=== PATIENT | male | born 1955 | race Caucasian/White ===

== ENCOUNTER 2021-06-27 09:16 | Inpatient (IN) | payer OTHER ==
[~2021-06-27] VITALS: Ht 175.3 cm; Wt 96.2 kg
[2021-06-27 09:41] VITALS: BP 155/91
[2021-06-27 09:44] LABS: URINE BILIRUBIN NEGATIVE (Negative); URINE BLOOD 3+ (Negative); URINE CLARITY CLOUDY; URINE COLOR RED; URINE GLUCOSE-RANDOM* TRACE (Negative); URINE KETONES TRACE (Negative); URINE PROTEIN (DIPSTICK) 2+ (Negative)
[2021-06-27 09:48] LABS: URINE LEUKOCYTES-REFLEX 1+ (Negative); URINE NITRITE-REFLEX POSITIVE (Negative)
[2021-06-27 10:05] LABS: ABSOLUTE NEUTROPHILS 7.5 thou/uL (1.4-8.2); BASOPHILS 0.4 % (0.0-2.0); EOSINOPHILS 1.6 % (0.0-3.0); HEMATOCRIT 39.9 % (42.0-52.0); HEMOGLOBIN 13.9 gm/dL (14.0-18.0); LYMPHOCYTES 10.7 % (24.0-44.0); MCH 33.5 pg (26.0-34.0); MCHC 34.8 g/dL (28.0-37.0); MCV 96.2 fL (80.0-100.0); MONOCYTES 8.8 % (1.0-8.0); PLATELET COUNT 205 thou/uL (150-400); POLYS 78.5 % (36.0-66.0); RBC 4.15 mil/uL (4.50-6.00); RDW 12.6 % (10.5-14.5); WBC 9.6 thou/uL (4.0-11.0)
[2021-06-27] MEDS ORDERED: COZAAR 25 MG TA25 M1 PO (10:08)
[2021-06-27] MEDS ORDERED: NORVASC5 MG PO (10:08)
[2021-06-27 10:09] LABS: BACTERIA-REFLEX None Seen /HPF (None Seen); CASTS None Seen /LPF (None Seen); CRYSTALS None Seen /LPF (None Seen); SQUAMOUS None Seen /LPF (0-3); URINE RBC >20 Many /HPF (NONE SEEN); URINE WBC-REFLEX 6-15 Few /HPF (0-5)
[2021-06-27] MEDS ORDERED: PROAIR HFA8.5 GM INH (10:10)
[2021-06-27] MEDS ORDERED: TRAMADOL 50 MG50 MG PO (10:10)
[2021-06-27] MEDS ORDERED: ALBUTEROL2.5 MG/0.1 INH (10:10)
[2021-06-27 10:15] LABS: ANION GAP 10 mmol/L (7-16); BUN 49 mg/dL (7-18); CALCIUM 9.1 mg/dL (8.5-10.1); CHLORIDE 102 mmol/L (98-107); CO2 22 mmol/L (21-32); CREATININE 6.1 mg/dL (0.7-1.3); GLUCOSE 113 mg/dL (74-106); POTASSIUM 5.7 mmol/L (3.5-5.1); SODIUM 134 mmol/L (136-145)
[2021-06-27 10:26] LABS: ALBUMIN 3.8 g/dL (3.4-5.0); MAGNESIUM 1.8 mg/dL (1.8-2.4); SGOT 16 U/L (15-37); SGPT 17 U/L (30-65); TOTAL BILIRUBIN 0.8 mg/dL (0.2-1.0); TOTAL PROTEIN 7.5 g/dL (6.4-8.2); TROPONIN-I <0.06 ng/mL (<0.06)
[2021-06-27] MEDS ORDERED: ALBUTEROL0.63 MG/3 INH (12:14)
--- NOTE | 2021-06-27 13:16 | NUR ---
TOOK OVER CARE FROM SADIE ALVARADO AT THIS TIME
--- NOTE | 2021-06-27 13:36 | EKG ---
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
[2021-06-27 14:21] LABS: FOLIC ACID 14.6 ng/mL (8.6-58.9)
[2021-06-27 16:29] VITALS: BP 167/94
--- NOTE | 2021-06-27 16:29 | NUR ---
REPORT GIVEN TO SADIE NAJERA AT THIS TIME. PT AND PT SPOUSE UPDATED ON CARE PLAN, VERBALIZED UNDERSTANDING DENIES FURTHER QUESTIONS AT THIS TIME
[2021-06-27 17:00] VITALS: BP 181/96
[2021-06-27 19:28] VITALS: BP 149/98
--- NOTE | 2021-06-27 19:32 | NUR ---
Received pt from the ED, pt is alert x 3 but not able to sign consents. at the bedside. Admission orers executed, FC in place draining blood tinged urine. per last time pt had a drink was a week ago since he was now feeling well. On CIWA protocol, scored 7. SOB noted placed on 2L of O2 sat is at 95%. Smoke 1 pack daily. POC followed, endorsed to the night nurse.
[2021-06-27] MEDS ORDERED: TRELEGY ELLIPT1 EAC1 (19:43)
[2021-06-28] VITALS (7 sets, daily range): BP systolic 150–193; BP diastolic 88–109
--- NOTE | 2021-06-28 02:12 | NUR ---
PT IS A/O X3 AND IS FORGETFUL. REMAINS ON 2 LITERS O2 NC. CAN BE IMPULSIVE TO GETTING UP AND TAKING OFF OXYGEN. VSS. AFEBRILE. HR ELEVATED IN THE 120'S. ST ON THE MONITOR. MURPHY IN PLACE DRAINING YELLOW AND BLOOD TINGED URINE. PT DENIES C/O PAIN OR DISCOMFORT BUT IS NOTED TO CONSISTENTLY LEAN TO LEFT SIDE OF THE BED WHEN LYING. SCORES RANGE FROM 7 TO 10 ON THE CIWA SCORE. C/O FEELING ANXIOUS AND HAS SLIGHT TREMORS. IS NOTED SOA WITH EXERTION. MEDICATIONS GIVEN PER MAR. CURRENTLY NPO AWAITING PROCEDURE IN THE AM. FALL PRECAUTIONS IN PLACE, CALL LIGHT IS WITHIN REACH. WILL CONTINUE TO MONITOR.
[2021-06-28 03:06] LABS: MCHC 34.1 g/dL (28.0-37.0); WBC 11.3 thou/uL (4.0-11.0)
[2021-06-28 03:08] LABS: ABSOLUTE NEUTROPHILS 10.9 thou/uL (1.4-8.2); BASOPHILS 0.2 % (0.0-2.0); HEMATOCRIT 41.2 % (42.0-52.0); HEMOGLOBIN 14.1 gm/dL (14.0-18.0); LYMPHOCYTES 3.1 % (24.0-44.0); MCV 96.7 fL (80.0-100.0); MONOCYTES 0.9 % (1.0-8.0); PLATELET COUNT 189 thou/uL (150-400); POLYS 95.8 % (36.0-66.0); RBC 4.26 mil/uL (4.50-6.00); RDW 13.2 % (10.5-14.5)
[2021-06-28 03:17] LABS: CALCIUM 8.6 mg/dL (8.5-10.1); CREATININE 5.7 mg/dL (0.7-1.3); MAGNESIUM 1.8 mg/dL (1.8-2.4)
[2021-06-28 03:29] LABS: POTASSIUM 6.4 mmol/L (3.5-5.1)
--- NOTE | 2021-06-28 16:20 | NUR ---
PT HAS RESTED QUIETLY IN BED THROUGH THE DAY. HE IS CONFUSED MOST OF THE TIME. ATE VERY LITTLE THROUGH THE DAY. URINE IS STILL BLOODY.
[2021-06-29 03:13] VITALS: BP 193/110
[2021-06-29 03:36] LABS: HEMATOCRIT 38.9 % (42.0-52.0); MCH 32.4 pg (26.0-34.0); MCHC 33.4 g/dL (28.0-37.0); MCV 97.1 fL (80.0-100.0); RDW 13.1 % (10.5-14.5); WBC 17.8 thou/uL (4.0-11.0)
--- NOTE | 2021-06-29 04:01 | NUR ---
assumed pt care at 1900, pt is awake, alert to self with confusion, st on tele, bp elevated this shift, treated with hydralizinex2 and lopressorx1, denies pain, ciwa 8-10, ativan po wood heel finisher per mar, calm and resting in bed, gonzáles catheter still draining bloody urine, irrigatedx2, willl continue to monitor, progressing slowly towards poc
[2021-06-29 05:55] VITALS: BP 172/86
[2021-06-29 06:08] LABS: ALBUMIN 3.5 g/dL (3.4-5.0); CALCIUM 8.9 mg/dL (8.5-10.1); CREATININE 5.3 mg/dL (0.7-1.3); PHOSPHORUS 6.4 mg/dL (2.5-4.9)
[2021-06-29 06:16] LABS: POTASSIUM 5.7 mmol/L (3.5-5.1)
[2021-06-29 07:38] VITALS: BP 188/82
[2021-06-29 11:21] VITALS: BP 146/86
[2021-06-29 15:05] VITALS: BP 106/54
--- NOTE | 2021-06-29 18:07 | NUR ---
PT MUCH ALERT ORIENTED X4. DOES NOT SEEM TO BE IN PAIN AT THIS TIME. LESS AGITATIVE. FAMILY HERE TO VISIT. WILL CONT TO MONITOR AND ASSIST NEEDED.
[2021-06-29 19:40] VITALS: BP 172/92
[2021-06-30] VITALS (9 sets, daily range): BP systolic 153–193; BP diastolic 80–105
[2021-06-30 04:43] LABS: ALBUMIN 3.5 g/dL (3.4-5.0); CALCIUM 8.5 mg/dL (8.5-10.1); CREATININE 5.2 mg/dL (0.7-1.3); PHOSPHORUS 5.1 mg/dL (2.5-4.9); POTASSIUM 5.2 mmol/L (3.5-5.1)
[2021-06-30 05:01] LABS: HEMATOCRIT 39.8 % (42.0-52.0); HEMOGLOBIN 13.3 gm/dL (14.0-18.0); MCH 32.8 pg (26.0-34.0); MCHC 33.3 g/dL (28.0-37.0); MCV 98.3 fL (80.0-100.0); RBC 4.05 mil/uL (4.50-6.00); RDW 13.4 % (10.5-14.5); WBC 17.7 thou/uL (4.0-11.0)
--- NOTE | 2021-06-30 05:58 | NUR ---
RECIEVED PATIENT ALERT AND ORIENTED TO SELF, MOSTLY CONFUSED.ON NASAL CANNULA AT 2LPM.WITH MURPHY CATHETER INSITU, STILL WITH BLOODY URINE OUTPUT, IRRIGATED X2.BLOOD PRESSURE HAS BEEN ON THE HIGH SIDE, DUE METOPROLOL GIVEN AND PRN HYDRALAZINE.HAD BEEN SOME WHEEZING AND COMPLAINED OF SOA, CALLED RT ON DUTY AND BREATHING TREATMENTS HAS BEEN GIVEN.INFORMED AIRPLANE NAVIGATOR AND UPDATED HER OF PATIENT'S STATUS.SHE ORDERED TO GIVE METHYLPREDNISOLONE.KEPT NPO FROM MIDNIGHT.ALL NEEDS ATTENDED.
--- NOTE | 2021-06-30 07:47 | NUR ---
RELAYED BMP RESULT TO INTERN PRODUCT MARKETING MANAGER, POTASSIUM IS STILL ON THE HIGH SIDE 5.2.
[2021-06-30 09:07] LABS: INR 0.97; PROTIME 10.6 Seconds (10.5-12.1)
--- NOTE | 2021-06-30 10:07 | 2DMMODE ---
[facility] [place] [address] 2 D/M-MODE ECHOCARDIOGRAM Name: TANYA WISEMAN Room #: 212-P ADM IN M.R.#: [id number] Admission: 06/27/21 Attend Phys: Deepak Dotson MD Discharge: Date of : 57 Report #: [id number] THIS REPORT FOR: cc: FAM - Family physician unknown FAM - Family physician unknown Jayy Oro MD [facility] ~ APPROVED REPORT Study performed: 06/30/2021 09:30:39 EXAM: Comprehensive 2D, Doppler, and color-flow Echocardiogram Patient Location: Bedside Room #: 212 Status: routine BSA: 2.11 HR: 115 bpm BP: 157/98 mmHg Rhythm: Tachycardia Other Information Study Quality: Adequate Indications Tachycardia. Hx: HTN, ETOH abuse, COPD. 2D Dimensions RVDd: 33.18 mm IVSd: 11.00 (7-11mm) LVOT Diam: 24.60 (18-24mm) LVDd: 42.79 mm PWd: 11.00 (7-11mm) Ascending Ao: 37.93 (22-36mm) LVDs: 28.65 (25-40mm) Left Atrium: 36.27 (27-40mm) Aortic Root: 38.07 mm Volumes Left Atrial Volume (Systole) Single Plane 4CH: 25.68 mL Single Plane 2CH: 47.85 mL LA ESV Index: 19.00 mL/m2 Aortic Valve AoV Peak Michael.: 1.38 m/s AO Peak Gr.: 7.60 mmHg LVOT Max P.64 mmHg LVOT Max V: 1.08 m/s [facility] [address] [place] [address] 2 D/M-MODE ECHOCARDIOGRAM Name: TANYA WISEMAN Room #: 212-P [facility] IN [facility].#: [id number] Admission: 06/27/21 Attend Phys: Deepak Dotson MD Discharge: Date of : 57 Report #: [id number] Vmax: 3.71 cm2 Pulmonary Valve PV Peak Michael.: 1.18 m/s PV Peak Gr.: 5.57 mmHg Tricuspid Valve RAP Estimate: 5.00 mmHg Left Ventricle The left ventricle is normal size. There is normal LV segmental wall motion. Borderline concentric left ventricular hypertrophy. Left ventricular systolic function is normal. LVEF is 55-60%. This study is not technically sufficient to allow evaluation of the LV diastolic function due to tachycardia. Right Ventricle The right ventricle is normal size. The right ventricular systolic function is normal. Atria The left atrium size is normal. The right atrium size is normal. Aortic Valve The aortic valve is normal in structure. No aortic regurgitation is present. There is no aortic valvular stenosis. Mitral Valve The mitral valve is normal in structure. There is no mitral valve regurgitation noted. No evidence of mitral valve stenosis. Tricuspid Valve The tricuspid valve is normal in structure. There is no tricuspid valve regurgitation noted. Unable to assess PA pressure. Pulmonic Valve Pulmonic valve is not well visualized. Trace pulmonic regurgitation. Great Vessels The aortic root and ascending aorta measure at the upper limits of normal. IVC is normal in size and collapses >50% with inspiration. Pericardium There is no pericardial effusion. [facility] [address] [place] [address] 2 D/M-MODE ECHOCARDIOGRAM Name: TANYA WISEMAN Room #: 212-P [facility] IN ..#: [id number] Admission: 06/27/21 Attend Phys: Deepak Dotson MD Discharge: Date of : 57 Report #: [id number] <Conclusion> Normal left ventricular size with mild concentric hypertrophy Ejection fraction 60% Normal right ventricular size/function Abnormal atrial size Color-flow Doppler study was performed with the aortic/mitral/tricuspid/pulmonary valve Normal mitral valve structure and function No evidence of tricuspid valve insufficiency No pericardial effusion Normal aortic root size. <ELECTRONICALLY SIGNED> By: Jayy Oro MD, FACC 06/30/21 1007 1007 1007 Jayy Oro MD, FACC /INF
--- NOTE | 2021-06-30 18:07 | NUR ---
RN ASSUMED PT'S CARE AT 0700AM, PT IS A&OX3 ( PERSON, TIME AND PLACE), PT IS ON O2 2L/MIN/NC, PT'S VS AND O2SAT ARE STABLE, PT HAS R AND L NEPHROSTOMY TUBE PLACEMENT DONE TOTAY, PT IS TOLERATIVE THIS PROCEDURE , PT DENIES PAIN AND N/V BY THIS TIME, PT'S BOTH SIDE TUBES HAVE LIGH BLOOD URINE COMING,WE CONTINUE MONITOR.
[2021-07-01 00:33] VITALS: BP 166/93
[2021-07-01 03:57] VITALS: BP 168/98
[2021-07-01 05:59] LABS: ALBUMIN 3.2 g/dL (3.4-5.0); CALCIUM 8.8 mg/dL (8.5-10.1); CREATININE 4.3 mg/dL (0.7-1.3); POTASSIUM 5.2 mmol/L (3.5-5.1)
[2021-07-01 07:36] VITALS: BP 151/98
[2021-07-01 10:57] VITALS: BP 147/72
--- NOTE | 2021-07-01 11:44 | NUR ---
Met with patient and at bedside. patient reports he is on disability and does not work. reports she works at [employer]. Patient has wifes insurance. CALCULUS TUTOR independent with adls and self care. interest in AD. gave her form to review. gave casemgt FMLA paper work. Placed on chart and phys aware. Patient has new PCP Dr Canseco with apt 07/23. Patient admits with GI bleed and weakness. Casemgt cont to follow.
[2021-07-01 15:25] VITALS: BP 173/82
[2021-07-01 19:42] VITALS: BP 151/93
--- NOTE | 2021-07-01 22:52 | NUR ---
PATIENTS CARES WERE ASSUMED AT SHIFT CHANGE. PATIENT WAS ASSESSED AND MEDS WERE PASSED. PATIENTS INITIAL COMPLAINT WAS A HEAD ACHE. NO TYLENOL ON THE JAN. CALLED FOR AN ORDER TO GET TYLENOL. ROUNDS WERE MADE. THE BED ALARM WAS ON AND THE BED WAS IN A LOW AND LOCKED POSITION.
[2021-07-02 05:38] LABS: ALBUMIN 2.9 g/dL (3.4-5.0); CALCIUM 8.2 mg/dL (8.5-10.1); CREATININE 3.5 mg/dL (0.7-1.3)
[2021-07-02 05:40] LABS: POTASSIUM 5.3 mmol/L (3.5-5.1)
[2021-07-02 06:00] VITALS: BP 151/80
--- NOTE | 2021-07-02 06:00 | NUR ---
TODAY THIS PT WAS A TRANSFER FROM A DIFFERENT UNIT. HE HAS TO RENAL DRAINAGE BAGS AND THEY HAVE BEEN DRAINING WELL WITH THE LEFT DRAINING MORE THAN THE RIGHT. HE IS TOLERATING HIS 3L OF OXYGEN WELL. HE HAS OTHERWISE BEEN ASLEEP FOR MOST OF THE NIGHT AWAITING FOR THE NEXT PLAN.
[2021-07-02 07:55] VITALS: BP 185/88
--- NOTE | 2021-07-02 13:40 | NUR ---
CARE TEAM INDICATED THAT PT WILL LIKELY BE DISCHARGING HOME WIHT NEPHROLOGY TUBES AND WOULD NEED HH SERVICES UPON DC. CM MET WITH PT AT AND SPOUSE AT BEDSIDE AND THEY WANTED REFERRAL SENT TO [facility] FOR REVIEW FOR POSSIBLE ADMISSION. CM FAXED REFERRAL TO [facility]. CM NOTIFIED HOUSE SUP THAT THEY WANTED TO COMPLETE A DPOA TODAY. CM FOLLOWING REGARDING DC PLANNING.
[2021-07-02 15:19] VITALS: BP 154/95
[2021-07-02 19:57] VITALS: BP 143/71
[2021-07-03 03:33] LABS: ALBUMIN 2.7 g/dL (3.4-5.0); CALCIUM 8.3 mg/dL (8.5-10.1); CREATININE 2.9 mg/dL (0.7-1.3); PHOSPHORUS 3.5 mg/dL (2.5-4.9); POTASSIUM 5.1 mmol/L (3.5-5.1)
--- NOTE | 2021-07-03 04:32 | NUR ---
PATIENT AOX4 MAKES NEEDS KNOWN. PATIENT IS ON 2L OXYGEN NO SOA OR DISTRESS NOTED THIS SHIFT. PATIENT HAS RIGHT AND LEFT NEPHROLOGY TUBES. 759 ML ON THE LEFT AND 200 ON THE RIGHT. FALL PRECAUTION IN PLACE. PATIENT IN BED ASLEEP AT THIS TIME BREATHING REGULAR AND UNLABOURED.
[2021-07-03 08:00] VITALS: BP 141/66
[2021-07-03 09:14] VITALS: BP 141/66
[2021-07-03] MEDS ORDERED: LOPRESSOR50 PO (11:11)
[2021-07-03] MEDS ORDERED: PROTONIX 20 MG20 M1 PO (11:12)
[2021-07-03] MEDS ORDERED: PRENATAL PO (11:12)
[2021-07-03] MEDS ORDERED: PREDNISONE 10 M10 MG PO (11:13)
[2021-07-03 11:50] VITALS: BP 141/66
[2021-07-03 13:41] VITALS: BP 141/66
--- NOTE | 2021-07-03 13:47 | NUR ---
CARE TEAM INDICATED PT IS MEDICALLY STABLE TO DC HOME THIS DAY. PT NEEDED HOME O2 2L AT REST AND 4L WITH ACTIVITY. CM MET WITH PT AND SPOKE AND THEY DON'T HAVE A PREFERANCE OF PROVIDER. REFERRAL SENT TO [facility]. THEY DELIVERED PT'S PORTABLE TANK. PT AND FAMILY INDICATED THAT THEY DON'T WANT ANY HH UPON DC. CM NOTIFIED LANEY. CM TO PROVIDE FMLA PAPERWORK TO DR. CRABTREE TO COMPLETE TOMORROW. NO OTHER CM INTERVENTION INDICTAED. CASE CLOSED.
[2021-07-03 13:55] VITALS: BP 141/66
--- NOTE | 2021-07-03 16:42 | NUR ---
PATIENT ALERT/ORIENTED. UP TO CHAIR THIS MORNING. VSS. READY TO DISCHARGE. PER , STATES SHE HAS EVERYTHING SHE NEEDS AT HOME TO BE ABLE TO CARE FOR PATIENT. NOT REQUESTING HOME HEALTH SERVICE. PT TO DISCHARGE ON OXYGEN, SET UP BY CASE MANAGEMENT. AWARE OF FOLLOW UP APPOINTMENT WITH UROLOGY. REVIEWED DISCHARGE SUMMARY AND MEDICATIONS WITH PATIENT AND SPOUSE. DENIES ANY NEEDS OR QUESTIONS. TELEMONITOR OFF. IV DISCONTINUED. PATIENT TRANSPORTED OUT OF FACILITY WITH NURSING STAFF.
== END 2021-07-03 14:25 | disposition home health service (06) | DRG 689 ==
LOC: ER 09:16 → 4W 12:07 → EROBS 12:07 → 2N 12:07 → 4W 07-01 22:59
PROVIDERS: Emergency Medicine; Hospitalist; Internal Medicine; Nurse Practitioner; Radiology Diagnostic Radiology; ADMIT Hospitalist; ATTEND Hospitalist
PROC: 0T9130Z Drainage of Left Kidney with Drainage Device, Percutaneous Approach (ICD-10-PCS; principal; 2021-06-30)
PROC: 0T9030Z Drainage of Right Kidney with Drainage Device, Percutaneous Approach (ICD-10-PCS; principal; 2021-06-30)
PROC: 5A0935A Assistance with Respiratory Ventilation, Less than 24 Consecutive Hours, High Flow/Velocity Cannula (ICD-10-PCS; 2021-07-01)
DX: N13.6 Pyonephrosis (principal); J96.01 Acute respiratory failure with hypoxia; G93.40 Encephalopathy, unspecified; I10 Essential (primary) hypertension; N17.9 Acute kidney failure, unspecified; G89.29 Other chronic pain; M25.572 Pain in left ankle and joints of left foot; N32.9 Bladder disorder, unspecified; E87.5 Hyperkalemia; F17.210 Nicotine dependence, cigarettes, uncomplicated; E86.0 Dehydration; J43.9 Emphysema, unspecified; N32.0 Bladder-neck obstruction; D72.829 Elevated white blood cell count, unspecified; Z20.822 Contact with and (suspected) exposure to COVID-19; Z79.899 Other long term (current) drug therapy
CPT/HCPCS: 10045; 10081

== ENCOUNTER 2021-07-28 12:11 | Inpatient (IN) | payer OTHER ==
[~2021-07-28] VITALS: Ht 175.3 cm; Wt 93.0 kg
--- NOTE | ~2021-07-28 | HC ---
[facility] [place] [address] CONSULTATION Name: TANYA WISEMAN Room #: 217-P ADM IN M.R.#: [id number] Admission: 07/28/21 Attend Phys: Ralph Cornejo MD Discharge: Date of : 57 Report #: [id number] THIS REPORT FOR: cc: FAM - Family physician unknown FAM - Family physician unknown Butch Echavarria MD ~ DATE OF SERVICE: 08/04/2021 HISTORY OF PRESENT ILLNESS: The patient is a 66-year-old white male admitted with nausea, vomiting and history of bilateral nephrostomies placed on 06/30/2021. At that point, he had an improvement in his creatinine from 6.9-2.9. He is noted to have multiple papillary tumors and the plan was to undergo TURBT and question bilateral ureteral stents on 08/01/2021. In the meantime, he ended up being admitted here to [facility] on 07/28/2021 with the nausea, vomiting, urine being dark and was diagnosed with urinary sepsis, toxic metabolic encephalopathy, and acute renal insufficiency. He is starting to feel better now and is wanting to return back home. We are seeing him in Rehabilitation Medicine consultation. PAST MEDICAL HISTORY: Includes hypertension, COPD, heavy ETOH. MEDICATIONS: Please see the MAR. SOCIAL HISTORY: Lives in a house with his who works as a DENTURES LAB TECHNICIAN over at [employer]. He is at home during the day while she is at work. He was able to transfer independently, has a scooter in the house and has a golf cart that he uses to get around in the yard. He indicated to me that he was not on O2 premorbidly at home. HABITS: Noted to be a current smoker. REVIEW OF SYSTEMS: Did not offer any current complaints of chest pain, shortness of breath or abdominal discomfort. PHYSICAL EXAMINATION: GENERAL: A 66-year-old white male, in no obvious distress. The patient is alert. VITAL SIGNS: Last recorded temperature 36.4, pulse 101, respirations 20, blood pressure 118/70. HEENT: Appeared to be benign. He is on nasal prong O2. Facies are symmetric. NEUROLOGIC: He has functional range of motion of bilateral upper extremities. Strength is a grade 4-/5. DTRs are trace to 1. Lower extremities, no focal calf swelling. Functional range of motion with strength grade 4-/5. Tone appeared to be intact. He does have the bilateral nephrostomy tubes in place. He is on nasal prong O2. Sit to stand is min assist with gait 30 feet, mod assist with a front-wheeled walker. In OT, he is min assist for toileting. [facility] [address] [place] [address] CONSULTATION Name: TANYA WISEMAN Room #: 217-P [facility] IN M.R.#: [id number] Admission: 07/28/21 Attend Phys: Ralph Cornejo MD Discharge: Date of : 57 Report #: [id number] ASSESSMENT: A 66-year-old male with the following problem list: 1. Toxic metabolic encephalopathy that appears to be improving. 2. Urinary sepsis. 3. Multiple papillary bladder tumors, has concurrent bilateral nephrostomies and the plan is for him to undergo further urologic surgery with transurethral resection of bladder tumor and likely ureteral stenting at a later date when he is further medically stabilized. 4. Acute renal insufficiency, appears to be improving. 5. Chronic obstructive pulmonary disease. 6. History of ETOH usage/abuse. PLAN: The patient is improving, but still has some functional weakness with basic mobility. He is adamant against any type of acute inpatient rehabilitation and notes that he went home like this last time and was able to do quite well with home health care. I encouraged him to continue to work in therapies here in the acute care hospital and we will follow along regarding his rehab therapy needs. He is set on returning directly home and we will continue to follow in the meantime. Thank you for asking us to assist in this patient's care. By: 1141 2140 Butch Echavarria MD /nt
[~2021-07-28 12:11] MED LIST: ALBUTEROL0.63 MG/3 INH; ALBUTEROL2.5 MG/0.1 INH; COZAAR 25 MG TA25 M1 PO; LOPRESSOR50 PO; NORVASC5 MG PO; PREDNISONE 10 M10 MG PO; PRENATAL PO; PROAIR HFA8.5 GM INH; PROTONIX 20 MG20 M1 PO; TRAMADOL 50 MG50 MG PO; TRELEGY ELLIPT1 EAC1
[2021-07-28 12:27] VITALS: BP 111/66
[2021-07-28] MEDS ORDERED: ALPRAZOLAM 0.0.25 M1 PO (12:36)
[2021-07-28] MEDS ORDERED: LOSARTAN POTAS100 MG PO (12:36)
[2021-07-28] MEDS ORDERED: NICODERM CQ1 EAC2 TOP (12:36)
[2021-07-28] MEDS ORDERED: TRAMADOL 50 MG50 MG PO (12:37)
[2021-07-28 13:06] LABS: ABSOLUTE NEUTROPHILS 16.2 thou/uL (1.4-8.2); BASOPHILS 0.5 % (0.0-2.0); HEMATOCRIT 34.3 % (42.0-52.0); HEMOGLOBIN 11.7 gm/dL (14.0-18.0); LYMPHOCYTES 5.6 % (24.0-44.0); MCH 31.1 pg (26.0-34.0); MCHC 34.2 g/dL (28.0-37.0); MCV 90.9 fL (80.0-100.0); MONOCYTES 7.7 % (1.0-8.0); PLATELET COUNT 245 thou/uL (150-400); POLYS 86.2 % (36.0-66.0); RBC 3.77 mil/uL (4.50-6.00); RDW 12.4 % (10.5-14.5); WBC 18.8 thou/uL (4.0-11.0)
[2021-07-28 13:11] LABS: CALCIUM 8.6 mg/dL (8.5-10.1); CREATININE 2.8 mg/dL (0.7-1.3); POTASSIUM 5.2 mmol/L (3.5-5.1)
[2021-07-28 13:28] LABS: ALBUMIN 2.6 g/dL (3.4-5.0); TOTAL BILIRUBIN 1.2 mg/dL (0.2-1.0); TOTAL PROTEIN 6.6 g/dL (6.4-8.2)
--- NOTE | 2021-07-28 16:27 | EKG ---
[address] [place] [address] ELECTROCARDIOGRAM REPORT Name: TANYA WISEMAN Room #: 170-4 ADM IN M.R.#: [id number] Admission: 07/28/21 Attend Phys: Ralph Cornejo MD Discharge: Date of : 57 Report #: [id number] [facility] ED Test Date: 2021-07-28 Test Time: 12:42:43 Pat Name: TANYA WISEMAN Department: Room: 170 Gender: M Special Agent Secret Service: rose : 1955 Requested By: Joe Forbes Order Number: [id number] MD: Jayy Oro Measurements Intervals [place] Rate: 140 P: 37 VA: 151 QRS: -89 QRSD: 76 T: 34 QT: 270 QTc: 412 Interpretive Statements Sinus tachycardia Abnormal R-wave progression, late transition Inferior infarct, old Compared to ECG 06/27/2021 10:01:17 No significant changes Electronically Signed On 07-28-2021 16:27:12 CDT by Jayy Oro [email or web address] <ELECTRONICALLY SIGNED> By: Jayy Oro MD, [facility] 07/28/21 1627 1242 1242 Jayy Oro MD, FAC /EPI
--- NOTE | 2021-07-28 21:28 | NUR ---
PT REQUESTED BREATHING TX FOR SOA. STATES HE HAS HX OF EMPHYSEMA. NOTIFIED SALES AND LEASING AGENT INSURANCE ACCOUNT ASSISTANT FOR HOSPITALIST. SHE WILL PUT IN ORDERS. SPO2 >90% ON 2L NC.
--- NOTE | 2021-07-28 21:28 | NUR ---
RT AND LT NEPHROSTOMY DRAINS INTACT AND DRAINING YELLOW FLUID.
[2021-07-28 21:32] VITALS: BP 148/73
--- NOTE | 2021-07-28 22:00 | NUR ---
PT FEBRILE AND TACHYCARDIC (HR 120S-130S). NOTIFIED MIGEL (PROFILER OPERATOR FOR HOSPITALIST). ORDER RECEIVED TO GIVE TYLENOL AND CONTINUE IVF. WILL NOTIFY PROFILER OPERATOR IF HR DOES NOT IMPROVE.
--- NOTE | 2021-07-28 23:40 | NUR ---
FEVER RESOLVED WITH TYLENOL. HR NOW 100S-110S. PT STATES HE FEELS LESS SOA AFTER BREATHING TX. BP STABLE.
[2021-07-29 05:38] LABS: HEMATOCRIT 29.1 % (42.0-52.0); MCH 31.4 pg (26.0-34.0); MCHC 34.2 g/dL (28.0-37.0); MCV 91.8 fL (80.0-100.0); RBC 3.17 mil/uL (4.50-6.00); RDW 12.6 % (10.5-14.5)
[2021-07-29 06:01] LABS: CALCIUM 7.7 mg/dL (8.5-10.1); CREATININE 3.1 mg/dL (0.7-1.3)
[2021-07-29 07:05] VITALS: BP 106/68
[2021-07-29 07:13] VITALS: BP 108/47
[2021-07-29 07:35] VITALS: BP 152/81
--- NOTE | 2021-07-29 10:10 | NUR ---
ASSUMED PT CARE UPON ADMISSION TO UNIT AROUND 0735. PATIENT A&OX4, ABLE TO MAKE NEEDS KNOWN. PATIENT IV FLUIDS INFUSING WITHOUT ISSUE. PATIENT REPORTS NO PAIN. PATIENT HAS [address] DRAINING DARK YELLOW URINE. MED REC COMPLETED, AWAITING MEDICATIONS TO BE RESTARTED. PRN BREATHING TREATMENT GIVEN. FALL PRECAUTIONS ARE IN PLACE, CALL LIGHT WITHIN REACH. PATIENT HEART RATE ELEVATED ON TELE, PHYSICIAN MADE AWARE WITH NO NEW ORDERS AT THIS TIME. PATIENT QUALIFIED FOR SEPSIS PROTOCOL, PHYSICIAN MADE AWARE.
[2021-07-29 10:51] LABS: URINE BILIRUBIN NEGATIVE (Negative); URINE BLOOD 1+ (Negative); URINE CLARITY CLEAR; URINE COLOR YELLOW; URINE GLUCOSE-RANDOM* NEGATIVE (Negative); URINE KETONES NEGATIVE (Negative); URINE NITRITE-REFLEX NEGATIVE (Negative); URINE PROTEIN (DIPSTICK) TRACE (Negative); URINE SPECIFIC GRAVITY 1.015 (1.005-1.035); URINE UROBILINOGEN 0.2 E.U./dl (0.2-1.0)
[2021-07-29 10:56] LABS: URINE LEUKOCYTES-REFLEX 1+ (Negative)
[2021-07-29 11:12] LABS: BACTERIA-REFLEX 1-9 Few /HPF (None Seen); COARSE GRANULAR CASTS 0-3 Few /LPF (None Seen); CRYSTALS None Seen /LPF (None Seen); HYALINE CASTS 0-3 Few /LPF (None Seen); SQUAMOUS 0-3 Few /LPF (0-3); URINE RBC None Seen /HPF (NONE SEEN); URINE WBC-REFLEX 6-15 Few /HPF (0-5)
[2021-07-29 12:06] VITALS: BP 100/60
--- NOTE | 2021-07-29 13:58 | NUR ---
PT ADMITTED RELATED TO WEAKNESS AND TACHYCARDIA. CM REVIEWED CHART AND SPOKE WITH CARE TEAM. CM MET WITH PT AT BEDSIDE THIS DAY. PT FAMILIAR TO CM FROM PREVIOUS ADMISSION. PT HAD DISCHARGED HOME WITH [place] O2 AND NEPHROSTOMY TUBES. PT AND SPOUSE HAD DECLINED HH UPON LAST DC BUT HAD GONE THROUGH PCP AND HAD BEEN ON SERVICE WITH [facility] DATA TECHNICAL LEAD. THEY ARE ABLE TO ACCEPT PT BACK UPON DC IF NEEDED. OT WORKED WITH PT AND INDICATED HE WOULD BENEFIT FROM SHORT TERM POST ACUTE ACUTE REAHB STAY. CM FOLLOWING REGARDIING DC PLANNING.
[2021-07-29 15:44] VITALS: BP 114/62
[2021-07-29 19:25] VITALS: BP 98/53
--- NOTE | 2021-07-30 03:26 | NUR ---
patient aox4 makes needs known.patient on 2lof oxygen patient get soa during activities. patient on sius tach. on monitor.patient is able to transfer from bed to bedside commode with minimum activities. patient has nephrostomy tubes bilateral, urine is yellow in color no odor. fall precaution in place. patient in bed asleep at this time breathing regular and unlaboured.
[2021-07-30 04:23] VITALS: BP 108/52
[2021-07-30 05:20] LABS: MCH 31.6 pg (26.0-34.0); MCHC 34.3 g/dL (28.0-37.0); RBC 3.16 mil/uL (4.50-6.00)
[2021-07-30 06:04] LABS: CALCIUM 7.6 mg/dL (8.5-10.1); CREATININE 3.1 mg/dL (0.7-1.3); POTASSIUM 4.8 mmol/L (3.5-5.1)
[2021-07-30 06:18] LABS: URINE BILIRUBIN NEGATIVE (Negative); URINE BLOOD 1+ (Negative); URINE CLARITY CLEAR; URINE COLOR YELLOW; URINE GLUCOSE-RANDOM* NEGATIVE (Negative); URINE KETONES NEGATIVE (Negative); URINE PROTEIN (DIPSTICK) 2+ (Negative); URINE UROBILINOGEN 0.2 E.U./dl (0.2-1.0)
[2021-07-30 06:22] LABS: URINE LEUKOCYTES-REFLEX 2+ (Negative); URINE NITRITE-REFLEX POSITIVE (Negative)
[2021-07-30 06:47] LABS: URINE BILIRUBIN NEGATIVE (Negative); URINE BLOOD 1+ (Negative); URINE CLARITY CLEAR; URINE COLOR YELLOW; URINE GLUCOSE-RANDOM* NEGATIVE (Negative); URINE KETONES NEGATIVE (Negative); URINE NITRITE-REFLEX NEGATIVE (Negative); URINE PROTEIN (DIPSTICK) 2+ (Negative); URINE SPECIFIC GRAVITY 1.015 (1.005-1.035); URINE UROBILINOGEN 0.2 E.U./dl (0.2-1.0)
[2021-07-30 06:48] LABS: URINE LEUKOCYTES-REFLEX 1+ (Negative)
[2021-07-30 07:08] VITALS: BP 105/41
[2021-07-30 07:20] LABS: CASTS None Seen /LPF (None Seen); SQUAMOUS 0-3 Few /LPF (0-3)
[2021-07-30 07:24] LABS: BACTERIA-REFLEX 1-9 Few /HPF (None Seen); CRYSTALS None Seen /LPF (None Seen); URINE RBC None Seen /HPF (NONE SEEN); URINE WBC-REFLEX 0-5 Rare /HPF (0-5)
[2021-07-30 07:25] LABS: CASTS None Seen /LPF (None Seen); SQUAMOUS 0-3 Few /LPF (0-3)
[2021-07-30 07:26] LABS: BACTERIA-REFLEX None Seen /HPF (None Seen); CRYSTALS None Seen /LPF (None Seen); URINE RBC 1-2 Rare /HPF (NONE SEEN); URINE WBC-REFLEX 0-5 Rare /HPF (0-5)
--- NOTE | 2021-07-30 14:59 | NUR ---
CARE TEAM INDICATED THAT PT MAY BE MEDICALLY STABLE TO DC HOME TOMORROW WEDNESDAY WITH RESUMPTION OF [facility]. CM FOLLOWING REGARDING DC PLANNING.
[2021-07-30 15:15] VITALS: BP 128/59
[2021-07-30 19:24] VITALS: BP 130/55
[2021-07-30 22:01] VITALS: BP 130/55
[2021-07-31 05:06] LABS: CALCIUM 7.7 mg/dL (8.5-10.1); CREATININE 2.8 mg/dL (0.7-1.3); POTASSIUM 4.8 mmol/L (3.5-5.1)
--- NOTE | 2021-07-31 05:10 | NUR ---
UPON SHIFT ASSESSMENT, PT AOX4. PT DENIES PAIN AND SOB WHILE ON 2L O2 VIA NC. PT NOTED TO HAVE PURSED LIP BREATHING WHILE AT REST, REPORTS SOB WITH EXERTION. PT HAS PRN IV MORPHINE Q4HR AND PRN PO APAP Q6HR AVAILABLE. PT TOLERATING PO INTAKE OF FLUIDS AND REGULAR DIET WITHOUT ISSUE. PT WITHOUT NAUSEA OR EMESIS. X2 NEPHROSTOMY TUBES IN PLACE, PATENT WITH LIGHT YELLOW URINE. PT RESTING IN BED THROUGHOUT SHIFT, FREQUENT REPOSITIONING ENCOURAGED. PT NOTED TO SHIFT INDEPENDENTLY WHILE IN BED. SENSATION INTACT, CAPILLARY REFILL LESS THAN 3SEC, PERIPHERAL PULSES PALPABLE IN BUE, FAINT PULSES IN BLE. PT ENCOURAGED TO NOTIFY STAFF FOR ALL NEEDS, CALL LIGHT WITHIN REACH, BED ALARM ON, BED LOCKED IN LOWEST POSITION, FREQUENT MONITORING WILL CONTINUE.
[2021-07-31 05:11] LABS: HEMATOCRIT 29.9 % (42.0-52.0); HEMOGLOBIN 10.1 gm/dL (14.0-18.0); MCH 31.2 pg (26.0-34.0); MCHC 33.8 g/dL (28.0-37.0); MCV 92.3 fL (80.0-100.0); RBC 3.24 mil/uL (4.50-6.00); RDW 13.1 % (10.5-14.5); WBC 11.8 thou/uL (4.0-11.0)
[2021-07-31 07:21] VITALS: BP 137/53
[2021-07-31 16:01] VITALS: BP 142/75
--- NOTE | 2021-07-31 16:28 | NUR ---
CM MET WITH PT AND SPOUSE AT BEDSIDE THIS DAY. CM INDICATED THAT ID HAD INDICATED THAT HE MIGHT NEED IV ABX UPON DC. CM EXPLAINED HOME INFUSION, OP INFUSION, AND SKILLED OPTION. SPOUSE INDICATED THAT THEY WOULD LIKELY PREFER TO HOME INFUSION AND RESUMPTION OF [facility] UPON DC. PT CHANGED FROM CEFTRIAXONE Q12 TO MEROPENEM Q8 THIS DAY. CM FOLLOWING REGARDING DC PLANNING.
[2021-07-31 20:12] VITALS: BP 153/71
--- NOTE | 2021-08-01 04:12 | NUR ---
ASSUMED PT CARE THIS PM. PT IS ALERT AND ORIENTED WITH CONFUSION. PT SLEPT THROUGHOUT THE SHIFT BUT WAS EASY TO AROUSE. PT HAS ROBERT NEPHROSTOMY TUBE WITH YELLOW URINE; DRSG IS C/D/I. PT IS ON 2L OF O2 WITH PURSED LIP BREATHING. PT DID NOT C/O N/V. PT IS ON CONTACT ISO FOR ESBL IN URINE. NO VISIBLE SIGN OF DISTRESS WAS NOTED. FALL PREACUTIONS IN PLACE. HARRIS CONTINUE TO MONITOR.
[2021-08-01 09:09] LABS: BE(vivo) -6.2 mmol/L (-2 to +3); HCO3 22.5 mmol/L (22.0-26.0); PCO2 60.2 mmHg (35.0-45.0); PO2 96.3 mmHg (80.0-100.0); sO2 95.5 % (92.0-98.0)
[2021-08-01 09:30] VITALS: BP 141/61
[2021-08-01 09:53] LABS: ALBUMIN 1.9 g/dL (3.4-5.0); CALCIUM 8.3 mg/dL (8.5-10.1); CREATININE 2.5 mg/dL (0.7-1.3); PHOSPHORUS 4.4 mg/dL (2.6-4.7); POTASSIUM 5.3 mmol/L (3.5-5.1)
--- NOTE | 2021-08-01 09:53 | NUR ---
PT UNRESPONSIVE EARLY AM THEN OUT OF ROOM.
--- NOTE | 2021-08-01 10:21 | NUR ---
ROAD ROLLER OPERATOR HOT MIX CALLED FOR PT R/T UNRESPONSIVE/DECREASED LOC. SEE FLOWSHEET FOR DETAILS
[2021-08-01 10:35] LABS: BE(vivo) -6.1 mmol/L (-2 to +3); HCO3 21.1 mmol/L (22.0-26.0); PCO2 49.1 mmHg (35.0-45.0); PO2 77.2 mmHg (80.0-100.0); sO2 93.3 % (92.0-98.0)
[2021-08-01 10:37] LABS: pH 7.251 (7.360-7.450)
[2021-08-01 12:15] VITALS: BP 153/82
[2021-08-01 15:40] VITALS: BP 137/74
[2021-08-01 16:42] LABS: HEMATOCRIT 34.2 % (42.0-52.0); HEMOGLOBIN 11.1 gm/dL (14.0-18.0); MCH 30.7 pg (26.0-34.0); MCHC 32.3 g/dL (28.0-37.0); MCV 94.9 fL (80.0-100.0); PLATELET COUNT 318 thou/uL (150-400); RDW 13.6 % (10.5-14.5); WBC 13.9 thou/uL (4.0-11.0)
[2021-08-01 17:12] LABS: ABSOLUTE NEUTROPHILS 12.6 thou/uL (1.4-8.2)
[2021-08-01 18:35] LABS: CALCIUM 7.9 mg/dL (8.5-10.1); CREATININE 2.4 mg/dL (0.7-1.3); POTASSIUM 5.3 mmol/L (3.5-5.1)
[2021-08-01 20:00] VITALS: BP 141/76
--- NOTE | 2021-08-01 20:03 | NUR ---
End shift note: Pt remained lethargic, was able to communicate very minimally at the end of the shift, VSS, afebrile, on BIPAP w/ Fio2 30%, ST on tele. POC to be cont'd.
--- NOTE | 2021-08-02 04:20 | NUR ---
RECEVED THE PATIENT AT 1900H,PATIENT IS ALERT AND ORIENTED TO SELF BUT CONFUSED.ONBIPAP AT 30% FIO2.WITH BILATERAL NEPHROSTOMY TUBES INTACT.NO COMPLAINTS OF PAIN.AT 0300H, PATIENT HAS BEEN REMOVING HIS BIPAP AND REFUSES TO PUT IT BACK IN,CALLED RT AND WE PLACED PATIENT ON 3LPM NASAL CANNULA, OXYGEN SATURATION WAS 97-99%, INFORMED HIGHWAY ENGINEERING TECHNICIAN ABOUT IT AND SHE TOLD ITS OK TO KEEP PATIENT ON NC TO GIVE HIM A BREAK WITH THE BIPAP.PATIENT IS PROGRESSING TO BE MORE AWAKE AND ORIENTED NOW.ALL NEEDS ATTENDED.TO CONTINOUSLY MONITOR.
[2021-08-02 04:40] VITALS: BP 150/69
[2021-08-02 04:57] LABS: ABSOLUTE NEUTROPHILS 10.7 thou/uL (1.4-8.2); BASOPHILS 0.4 % (0.0-2.0); EOSINOPHILS 0.2 % (0.0-3.0); HEMATOCRIT 35.3 % (42.0-52.0); HEMOGLOBIN 11.6 gm/dL (14.0-18.0); LYMPHOCYTES 7.3 % (24.0-44.0); MCH 30.8 pg (26.0-34.0); MCHC 32.9 g/dL (28.0-37.0); MCV 93.6 fL (80.0-100.0); MONOCYTES 9.2 % (1.0-8.0); PLATELET COUNT 336 thou/uL (150-400); POLYS 82.9 % (36.0-66.0); RBC 3.78 mil/uL (4.50-6.00); RDW 13.5 % (10.5-14.5); WBC 12.8 thou/uL (4.0-11.0)
[2021-08-02 05:57] LABS: ALBUMIN 1.9 g/dL (3.4-5.0); CALCIUM 8.6 mg/dL (8.5-10.1); CREATININE 2.4 mg/dL (0.7-1.3); PHOSPHORUS 4.1 mg/dL (2.5-4.9); POTASSIUM 5.4 mmol/L (3.5-5.1); TOTAL BILIRUBIN 0.3 mg/dL (0.2-1.0); TOTAL PROTEIN 6.1 g/dL (6.4-8.2)
[2021-08-02 08:05] VITALS: BP 149/65
[2021-08-02 11:40] VITALS: BP 139/69
[2021-08-02 16:20] VITALS: BP 114/60
[2021-08-02 20:11] VITALS: BP 136/48
--- NOTE | 2021-08-02 20:21 | NUR ---
Assumed care of pt this AM. Pt on 3L NC, A& O x 1-2. Pt struggles situationally & w/ time. Nephrostomy tubes patent & draining appropriately. ST on the monitor. Daughter, & son visited today. Needs met throughout the day.
[2021-08-03 01:05] VITALS: BP 129/67
[2021-08-03 03:44] LABS: ABSOLUTE NEUTROPHILS 10.4 thou/uL (1.4-8.2); BASOPHILS 0.3 % (0.0-2.0); EOSINOPHILS 0.2 % (0.0-3.0); HEMATOCRIT 33.6 % (42.0-52.0); HEMOGLOBIN 11.2 gm/dL (14.0-18.0); LYMPHOCYTES 7.7 % (24.0-44.0); MCH 30.9 pg (26.0-34.0); MCHC 33.3 g/dL (28.0-37.0); MCV 92.9 fL (80.0-100.0); MONOCYTES 10.6 % (1.0-8.0); PLATELET COUNT 346 thou/uL (150-400); POLYS 81.2 % (36.0-66.0); RBC 3.62 mil/uL (4.50-6.00); RDW 13.4 % (10.5-14.5); WBC 12.8 thou/uL (4.0-11.0)
[2021-08-03 04:31] LABS: CALCIUM 9.2 mg/dL (8.5-10.1); CREATININE 2.4 mg/dL (0.7-1.3); MAGNESIUM 1.7 mg/dL (1.8-2.4); PHOSPHORUS 3.6 mg/dL (2.6-4.7); POTASSIUM 4.8 mmol/L (3.5-5.1); TOTAL BILIRUBIN 0.3 mg/dL (0.2-1.0); TOTAL PROTEIN 6.4 g/dL (6.4-8.2)
[2021-08-03 04:44] VITALS: BP 140/48
--- NOTE | 2021-08-03 04:50 | NUR ---
RECEIVED THE PATIENT AT 1900H, PATIENT IS ALERT AND ORIENTED BUT SOMETIMES FORGETFUL AND CONFUSED.ON NASAL CANNULA AT 2LPM, SATURATING WELL.WITH BILATERAL NEPHROSTOMY TUBES INTACT.NOT IN DISTRESS.SINUS RYTHM TO SINUS TACHY ON THE MONITOR.ALL NEEDS ATTENDED.
[2021-08-03 15:13] VITALS: BP 151/49
--- NOTE | 2021-08-03 16:20 | NUR ---
Assumed care of pt this AM. Pt is A&O x3 today, on 2L NC. Nephrostomy tubes in place & patent. ST w/ PVCs on the monitor. Pt c/o back pain, given PRN tylenol. Pt denies any other needs, resting comfortably in bed. Will continue to assess pt needs.
[2021-08-03 19:18] VITALS: BP 144/88
--- NOTE | 2021-08-04 00:21 | NUR ---
PT PROGRESSING TOWARDS D/C GOALS. VSS AFEBRILE. SATS WNL ON 2LNC. PT HAS BEEN APPROPRIATE AND ALERT X3. FOLLOWS COMMANDS. NO S/S DISTRESS, HE IS SLEEPING PRESENTLY . NEPROSTOMY DRAINS DRAINING CLEAR YELLOW URINE.
[2021-08-04 04:40] VITALS: BP 130/83
[2021-08-04 05:24] LABS: ABSOLUTE NEUTROPHILS 10.8 thou/uL (1.4-8.2); BASOPHILS 0.4 % (0.0-2.0); EOSINOPHILS 0.1 % (0.0-3.0); HEMOGLOBIN 10.9 gm/dL (14.0-18.0); LYMPHOCYTES 8.7 % (24.0-44.0); MCH 30.6 pg (26.0-34.0); MCHC 33.2 g/dL (28.0-37.0); MCV 92.2 fL (80.0-100.0); MONOCYTES 7.2 % (1.0-8.0); PLATELET COUNT 371 thou/uL (150-400); POLYS 83.6 % (36.0-66.0); RBC 3.58 mil/uL (4.50-6.00); RDW 13.3 % (10.5-14.5); WBC 12.9 thou/uL (4.0-11.0)
[2021-08-04 05:37] LABS: MAGNESIUM 1.6 mg/dL (1.8-2.4); PHOSPHORUS 3.2 mg/dL (2.6-4.7)
[2021-08-04 05:42] LABS: CALCIUM 8.5 mg/dL (8.5-10.1); CREATININE 2.4 mg/dL (0.7-1.3); PHOSPHORUS 3.1 mg/dL (2.6-4.7); POTASSIUM 4.3 mmol/L (3.5-5.1)
[2021-08-04 08:00] VITALS: BP 113/63
--- NOTE | 2021-08-04 09:04 | NUR ---
PT HAD A QUIET NIGHT ,AINTAINED SATS ON 2LNC. NO C/O SOA OR PAIN. SR-ST ON MONITOR.
--- NOTE | 2021-08-04 10:49 | NUR ---
Assess for length of stay. admit with weakness, acute on chronic CKD, acute on chronic respiratory failure. Currently on 2L NC. intake initially poor but past couple days 75-100% meals. Hx recent bilateral nephrostomy tube placement, bladder mass. Noted 5N rehab consulted. Low nutrition risk at this time.
[2021-08-04 11:25] VITALS: BP 118/70
[2021-08-04 15:55] VITALS: BP 144/84
--- NOTE | 2021-08-04 16:37 | NUR ---
met with patient and spoke with . Patient reports he has urology apt/surgery at [facility] on Wednesday. Patient evaled for 5N and patient declines. Physical therapy spoke with patient on cont rehab prior to home. Patient reports he just wants to go home. Sp with via phone. She is unsure if patient has apt Wednesday or not. She reports when cancelled apt last Wednesday they reported he is at top of list for apt to reschedule. agreeable for casemgt to call phys office Dr Larissa Rain [phone]. Sp with office who has no apt arranged. Notified patient and . Encouraged acute rehab. Patient plans to discuss with when she visits this evening,
[2021-08-04 21:04] VITALS: BP 113/66
--- NOTE | 2021-08-05 01:05 | NUR ---
PT ALERT AND ORIENTED.DENIES PAIN. NEPHROSTOMY TUBES WITH LIGHT YELLOW OUTPUT. DENIES ANY SOA OR COUGH. REPORTS WEAKNESS AND IS LOOKING FORWARD TO GOING TO REHAB.HAS URINARY INCONTINENCE.DENIES PAIN.CALLS WITH NEEDS.
[2021-08-05 06:50] LABS: HEMATOCRIT 31.6 % (42.0-52.0); HEMOGLOBIN 10.2 gm/dL (14.0-18.0); MCH 29.9 pg (26.0-34.0); MCHC 32.2 g/dL (28.0-37.0); MCV 92.7 fL (80.0-100.0); PLATELET COUNT 331 thou/uL (150-400); RBC 3.41 mil/uL (4.50-6.00); RDW 13.1 % (10.5-14.5); WBC 14.4 thou/uL (4.0-11.0)
[2021-08-05 07:12] LABS: ALBUMIN 1.9 g/dL (3.4-5.0); CALCIUM 8.5 mg/dL (8.5-10.1); CREATININE 2.3 mg/dL (0.7-1.3); PHOSPHORUS 3.6 mg/dL (2.5-4.9); POTASSIUM 4.9 mmol/L (3.5-5.1)
--- NOTE | 2021-08-05 07:51 | NUR ---
PATIENT HAS BEEN ACCEPTED FOR 5N ADMISSION BUT NEED FINAL CONFIRMATION FROM ATTENDING THAT NO SURGERY PLANNED FOR NEAR FUTURE. IF NO SURGERY, ADMISSION MAY BE EARLY THIS DATE (08/05/21).
[2021-08-05 09:16] VITALS: BP 114/67
[2021-08-05 10:27] LABS: ABSOLUTE NEUTROPHILS 12.5 thou/uL (1.4-8.2); METAMYELOCYTES 1 %; PLATELET ESTIMATE NORMAL
[2021-08-05] MEDS ORDERED: PROTONIX 20 MG20 MG PO (15:15)
[2021-08-05] MEDS ORDERED: MEROPENEM500 MG IV (15:15)
[2021-08-05] MEDS ORDERED: SODIUM BICARBO650 M3 PO (15:15)
--- NOTE | 2021-08-05 15:16 | NUR ---
Patient agreeable to 5N transfer. Updated phys they are accepting. Spoke with and alerted patient to transfer to room 503. She plans to bring clothes in am. No further needs.
[2021-08-05 15:55] VITALS: BP 147/74
--- NOTE | 2021-08-05 16:16 | NUR ---
REPORT GIVEN TO SADIE ACEVEDO ON 5N. NO QUESTIONS OR CONCERNS AT TIME OF REPORT. TELE REMOVED, IV LEFT FOR ABX THERAPY ON 5N. TRANSFERED BY WHEELCHAIR BY STAFF.
== END 2021-08-05 16:28 | DRG 871 ==
LOC: ER 12:11 → EROBS 14:23 → 4W 14:23 → 2N 08-01 09:56
PROVIDERS: Emergency Medicine; Internal Medicine; Internal Medicine Nephrology; Physician Assistant; Specialist; ADMIT Hospitalist; ATTEND Hospitalist
PROC: 5A09357 Assistance with Respiratory Ventilation, Less than 24 Consecutive Hours, Continuous Positive Airway Pressure (ICD-10-PCS; principal; 2021-08-01)
DX: A41.51 Sepsis due to Escherichia coli [E. coli] (principal); G92 Toxic encephalopathy; J96.21 Acute and chronic respiratory failure with hypoxia; N17.9 Acute kidney failure, unspecified; N13.6 Pyonephrosis; J43.9 Emphysema, unspecified; D49.4 Neoplasm of unspecified behavior of bladder; F17.210 Nicotine dependence, cigarettes, uncomplicated; F41.9 Anxiety disorder, unspecified; N32.9 Bladder disorder, unspecified; N18.9 Chronic kidney disease, unspecified; I12.9 Hypertensive chronic kidney disease with stage 1 through stage 4 chronic kidney disease, or unspecified chronic kidney disease; E87.5 Hyperkalemia; E83.42 Hypomagnesemia; D64.9 Anemia, unspecified; Z20.822 Contact with and (suspected) exposure to COVID-19; Z93.6 Other artificial openings of urinary tract status; Z79.899 Other long term (current) drug therapy
CPT/HCPCS: 10045; 10081

== ENCOUNTER 2021-08-05 14:55 | Inpatient (IN) | payer OTHER ==
[~2021-08-05] VITALS: Ht 175.3 cm; Wt 85.7 kg
[~2021-08-05 14:55] MED LIST changes: +ALPRAZOLAM 0.0.25 M1 PO; +LOSARTAN POTAS100 MG PO; +NICODERM CQ1 EAC2 TOP
[2021-08-05] MEDS ORDERED: PROTONIX 20 MG20 MG PO (15:15)
[2021-08-05] MEDS ORDERED: SODIUM BICARBO650 M3 PO (15:15)
[2021-08-05] MEDS ORDERED: MEROPENEM500 MG IV (15:15)
[2021-08-05 19:51] VITALS: BP 156/86
--- NOTE | 2021-08-06 04:25 | NUR ---
ASSUMED CARE AT 1900 OF 08/06. PATIENT IS A&OX3, DENIES PAIN OR SHORTNESS OF BREATH. ON CONTINUOUS 2L OF O2 VIA NC, INTERMITTENT COUGH PRESENT, LS ARE DIMINISHED. MINIMAL ASSIST WITH TRANSFERS USING GB. BILATERAL +1 PEDAL EDEMA NOTED, ENCOURAGED TO ELEVATE FEET WHILE IN BED. PRESENTS WITH BILATERAL NEPHROSTOMY TUBES. BILATERAL FLANK DRESSINGS ARE CDI. CLOUDY YELLOW URINE NOTED IN DRAINAGE BAG. REMAINS ON CONTACT PRECAUTIONS FOR ESBL IN URINE. TOLERATED ORAL MEDICATIONS WHOLE WITH THIN LIQUIDS. FALL PRECAUTIONS IN PLACE, CALL LIGHT WITHIN REACH. WILL CONTINUE TO MONITOR.
[2021-08-06 05:18] LABS: HEMATOCRIT 28.7 % (42.0-52.0); HEMOGLOBIN 9.7 gm/dL (14.0-18.0); MCH 31.3 pg (26.0-34.0); MCHC 33.7 g/dL (28.0-37.0); MCV 92.8 fL (80.0-100.0); RBC 3.09 mil/uL (4.50-6.00); RDW 13.1 % (10.5-14.5); WBC 13.1 thou/uL (4.0-11.0)
[2021-08-06 05:42] LABS: CALCIUM 7.9 mg/dL (8.5-10.1); CREATININE 2.1 mg/dL (0.7-1.3); POTASSIUM 4.3 mmol/L (3.5-5.1)
[2021-08-06 07:15] VITALS: BP 123/65
[2021-08-06 08:30] VITALS: BP 123/65
--- NOTE | 2021-08-06 09:56 | NUR ---
WOUND CONSULT; I AM HERE TODAY RE; A RED COCCYX. THE AREA BLANCHES. I ASSESSED THE HEELS WELL WHICH WERE UNREMARKABLE. THE PATIENT CAN TURN HIMSELF AND COMUNICATE WELL. THE PATIENT AND WERE EDUCATED ON PRESSURE WOUND PREVENTION STRATEGIES. HOB LESS THAN 30 DEGREES XMEALS, TURNING,MOISTURE MANGMENT, AND FLOATING HEELS. THE PATIENT AND VERBALIZED UNDERSTANDING. CONTINUE BARRIER CREAM. DISCUSSED WITH SADIE
--- NOTE | 2021-08-06 12:15 | NUR ---
Assess r/t high risk screen; reported weight loss and decreased appetite on admit to rehab. Pt was on medical unit prior r/t s/p bilateral nephrostomy tube placement, bladder mass present. UTI, hx ETOH. Wound care consulted r/t redness to coccyx; education given to pt and spouse r/t skin integrity. Intakes good on regular diet with 75-100% avg. No sig weight loss noted, ~7#, 3% loss since last month admit, likely r/t fluid/unrine retention. Wt stable this admit. Low nutrition risk.
--- NOTE | 2021-08-06 16:29 | NUR ---
Chart review. New on acute rehab. DX Toxic metabolic encephalopathy. Spoke with his yeni, intro to cm and dcp. He going to be dc on wednesday and his blood thinner need to be stopped for the bx that will be done on 08/12/21, also he needs covid test before he is dc so can do the bx on . Passed on information to MD and MAJOR APPLIANCE ASSEMBLY SUPERVISOR. Prior to hospital, independent. Lives home with , manage own medication. Uses home oxygen. [facility] in past. notified by MD that he will be having short stay and dc on 08/08/21.
--- NOTE | 2021-08-06 17:31 | NUR ---
ASSUMED C/O PT AT 0700 PT A&OX4. PT UP WITH JESS RIBEIRO SBA. PT TO DC WEDNESDAY HOME WITH . PT NEPHROSTOMY TUBES IN PLACE, PATENT DRESSINGS ARE C/D/I. PT TOLERATING REGULAR DIET. PT USES CALL LIGHT APPROPRIATELY. WILL CONTINUE TO MONITOR.
[2021-08-06 19:35] VITALS: BP 117/48
--- NOTE | 2021-08-07 02:14 | NUR ---
PT IS ALERT AND ORIENTED X 4.MOSTLY OBSERVED SLEEPING THIS SHIFT. CONTINUES TO BE ON ROOM AIR-NO DISTRESS NOTED. ROBERT NEPHROSTOMY TUBES IN PLACE AND PUTTING OUT LIGHT YELLOW URINE. PT IS AFEBRILE. CONTINUES ON IV ABTS.CALLS WITH NEEDS.UP TO THE BATHROOM WITH WALKER.
[2021-08-07 07:45] VITALS: BP 117/48
[2021-08-07 08:00] VITALS: BP 120/64
--- NOTE | 2021-08-07 11:15 | NUR ---
notified by AIR BRAKE WORKER that ID MD want home with IV ABX. Spoke with cara and yeni, use [facility] and [facility].
--- NOTE | 2021-08-07 18:15 | NUR ---
SPOKE TO Andres PINO IN IR AND SHE CONFORMED SHE SPOKE TO THE IR STAFF ABOUT TICC PLACEMENT FOR THIS PATIENT ON 08/08. IR STAFF IS AWARE. THIS PATIENT HAS A EGFR OF 32, BILATERAL NEPHROSTOMY TUBES, AND HYDRONEPHROSIS. DUE TO THE RENAL ISSUES A TUNNELLED ACCESS WOULD BE MORE APPROPRIATE FOR THIS PATIENT TO PERSERVE ARM VEINS FOR FUTURE FISTULA PLACEMENT IF NEEDED.
[2021-08-07 18:53] VITALS: BP 98/35
--- NOTE | 2021-08-08 01:32 | NUR ---
PATIENT CARE WAS RESUMED AT 1900 IS ALERT ANS ORIENTED. HE IS ON CONTACT ISOLATION FOR ESBL URINE. PATIENT HAS TWO NEPHROSTOMY TUBES AND BOTH ARE DRAING. HE IS A MAX ASSIT WITH TRANSFER X2. TOOK HIS MEDS WHOLE AND ABLE TO VERBALIZE HIS PAINS. PICC LINE TO BE PLACE IN THE MORNING. PATIENT IS CHEDUKED FOR DISCHARGE TODAY. CONTINIUE CARE AND MONITOR. HE DENIES PAINS, CONTINENT OF B/B. LUNGS ARE CLEAR BS ACTIVE X4 QUADS.CALL LIGHT AT REACH. COVID TEST SAMPLE SENT TO THE LAB.
[2021-08-08 07:50] VITALS: BP 138/59
[2021-08-08 09:36] VITALS: BP 138/59
[2021-08-08] MEDS ORDERED: PROTONIX 20 MG20 MG PO (09:37)
[2021-08-08] MEDS ORDERED: MIRALAX17 GM PO (09:37)
[2021-08-08] MEDS ORDERED: VITAMIN B-12500 MCG PO (09:37)
[2021-08-08] MEDS ORDERED: FOLIC ACID1 MG PO (09:37)
[2021-08-08] MEDS ORDERED: INVANZ1 GM IV ×2 (09:40→09:56)
[2021-08-08] MEDS ORDERED: LOSARTAN POTAS100 MG PO (09:44)
[2021-08-08] MEDS ORDERED: FERREX 150 PLU1 EAC1 PO (09:44)
[2021-08-08] MEDS ORDERED: VITAMIN D350 MC3 PO (09:44)
[2021-08-08] MEDS ORDERED: NORVASC5 MG PO (09:44)
[2021-08-08] MEDS ORDERED: SODIUM BICARBO650 M3 PO (09:44)
[2021-08-08] MEDS ORDERED: LOPRESSOR50 PO (09:44)
--- NOTE | 2021-08-08 10:55 | NUR ---
VAT CONSULTED FOR MIDLINE FOR 1 WEEK OF INFUSION. DISCUSSED WITH DR CALDERÓN AND EDMAR NOEL REGARDING RENAL FCN. TICC CANCELLED. KAMALJIT BRACHIAL WAS WIDELY PATENT WITH USG. 4FR BIOFLO MIDLINE TRIMMED TO 12CM INSERTED TO 0CM WITH BRISK BR. RELEASED FOR IMMEDIATE USE PER PROTOCOL. PT TOLERATED WELL.
[2021-08-08] MEDS ORDERED: ZOFRAN ODT4 MG PO (12:18)
--- NOTE | 2021-08-08 13:57 | NUR ---
ORDERS GIVEN TO DISCHARGE PT TO HOME. DISCHARGE INSTRUCTIONS GIVEN TO PT AND THE DAUGHTER. THEY BOTH VERBERLISED UNDERSTANDING.
--- NOTE | 2021-08-15 13:52 | PLAN ---
[facility] [place] [address] REHAB UNIT PLAN OF CARE Name: TANYA WISEMAN Room #: 503-P DIS IN M.R.#: [id number] Admission: 08/05/21 Attend Phys: Butch Echavarria MD Discharge: 08/08/21 Date of : 57 Report #: [id number] THIS REPORT FOR: cc: FAM - Family physician unknown FAM - Family physician unknown Butch Echavarria MD ~ DATE OF SERVICE: 08/06/2021 PSYCHIATRY PROGRESS/OVERALL PLAN OF CARE HISTORY OF PRESENT ILLNESS: The patient has been admitted for acute in-hospital inpatient rehabilitation. He was seen this morning along with his being present. Afebrile, vital signs are stable. His temperature was 99.1. He was in no distress. He is on 2 liters nasal cannula. His nephrostomy tubes are in place. Some slowness in mentation, but follows basic commands without difficulty and we will defer to his . Functionally, he has been working in therapies with transfers, min assist. Gait was 20 feet min assist with a front-wheeled walker. He also went 50 feet min assist with a front-wheeled walker. In occupational therapy, upper body dressing, supervision with lower body dressing, contact guard. Speech therapy is noted to have moderate cognitive deficits with xait-gm-odwroleo memory. He is on a regular diet with thin liquids. ASSESSMENT: 1. Toxic metabolic encephalopathy. 2. Medical complexity with generalized debilitation. 3. Urinary sepsis, ESBL. 4. Multiple papillary tumors, status post bilateral nephrostomy tubes. 5. Acute renal insufficiency. 6. Chronic obstructive pulmonary disease. 7. History of ETOH abuse. PLAN: The overall plan of care is based on the pre-admit screen and information garnered from therapy assessments. 1. Estimated length of stay is going to be through this Wednesday. I had a discussion with the patient and his and the is an aide herself working over at [facility] and she will be often will be able to assist him over the weekend and he does have other family members and can assist. I want to make sure the was amenable to this and asked her to be involved in family training today, so that she will feel comfortable as far as having him return back to the home setting at the end of the week. 2. Medical prognosis is reasonably good. 3. Anticipated interventions includes the interdisciplinary acute inpatient rehabilitation program. 4. Anticipated functional outcomes would be for the patient to become further independent ideally modified independent with basic transfers and mobility [address] [address] REHAB UNIT PLAN OF CARE Name: TANYA WISEMAN Room #: 503-P DIS IN M.R.#: [id number] Admission: 08/05/21 Attend Phys: Butch Echavarria MD Discharge: 08/08/21 Date of : 57 Report #: [id number] issues at least at the walker level as well as further improvement in cognition. 5. Discharge destination is back home with . 6. Expected therapy by discipline includes PT, OT and speech 1 hour per day each 5 days a week throughout the duration of the acute inpatient rehabilitation stay. ADDENDUM: The patient's prognosis for significant practical improvement within a reasonable period of time appears good. Given the patient's complex medical condition and risk of further medical complication, rehabilitation services could not be safely provided at the lower level of care such as a fpc facility. <ELECTRONICALLY SIGNED> By: Butch Echavarria MD 08/15/21 1352 1547 0011 Butch Echavarria MD /nt
== END 2021-08-08 13:59 | disposition home or self-care (01) | DRG 91 ==
LOC: SBH 14:55
PROVIDERS: Nurse Practitioner Family; ADMIT Physical Medicine & Rehabilitation; ATTEND Physical Medicine & Rehabilitation
PROC: 05HA33Z Insertion of Infusion Device into Left Brachial Vein, Percutaneous Approach (ICD-10-PCS; principal; 2021-08-08)
DX: G92.8 Other toxic encephalopathy (principal); J96.20 Acute and chronic respiratory failure, unspecified whether with hypoxia or hypercapnia; E43 Unspecified severe protein-calorie malnutrition; A41.51 Sepsis due to Escherichia coli [E. coli]; N17.9 Acute kidney failure, unspecified; Z16.12 Extended spectrum beta lactamase (ESBL) resistance; J43.9 Emphysema, unspecified; F17.210 Nicotine dependence, cigarettes, uncomplicated; R53.81 Other malaise; D36.9 Benign neoplasm, unspecified site; Z20.822 Contact with and (suspected) exposure to COVID-19; I12.9 Hypertensive chronic kidney disease with stage 1 through stage 4 chronic kidney disease, or unspecified chronic kidney disease; N18.9 Chronic kidney disease, unspecified; D64.9 Anemia, unspecified; F41.9 Anxiety disorder, unspecified; Z93.6 Other artificial openings of urinary tract status
CPT/HCPCS: 10112; 27000

== ENCOUNTER 2021-08-23 12:35 | Inpatient (IN) | payer OTHER ==
[~2021-08-23] VITALS: Ht 175.3 cm; Wt 77.1 kg
--- NOTE | ~2021-08-23 | HC ---
[facility] [place] [address] CONSULTATION Name: TANYA WISEMAN Room #: 239-P ADM IN M.R.#: [id number] Admission: 08/23/21 Attend Phys: Shaila Toro MD Discharge: Date of : 57 Report #: [id number] THIS REPORT FOR: cc: FAM - Family physician unknown FAM - Family physician unknown Vijay Gerardo MD ~ DATE OF SERVICE: 08/28/2021 HISTORY OF PRESENT ILLNESS: This is a 66-year-old male patient whose consultation was requested by Dr. Nelson. I talked to the patient's nurse. I called the patient's , but she did not brain picker the phone, so I could not talk to her. The patient is being evaluated for encephalopathy. He is able to talk, but is pretty confused. I do not know what his baseline status is because I could not reach the patient's . REVIEW OF SYSTEMS: Positive for pretty extensive problem in this patient with toxic metabolic encephalopathy, general debilitation and this patient has been admitted. He has multiple urinary problems. He said he used to drink heavy alcohol before coming here and he is on supplemental thiamine ____ vitamin B12 ____. He has a hematuria and multiple problems. It also looks like he has hypertension, emphysema, COPD, bladder cancer. This was his relevant 14-point review of systems. PAST MEDICAL HISTORY: Positive for hypertension, emphysema. FAMILY HISTORY: Unremarkable. SOCIAL HISTORY: Apparently, he smokes and drink alcohol in significant amount before all this illnesses. PHYSICAL EXAMINATION: Indicates he is alert. He can talk. He knew who the president is, but he thinks it is July. He said he is in [facility]. Cranial nerve examination and neuromuscular examination was mostly symmetrical. His position sense was intact. There is no meningeal sign. He did not cooperate with the fundus examination. There is no carotid bruit. He does appear to be somewhat short of breath. Cardiac examination is stable. He is also being treated for infection. His sodium is somewhat high at 147. DATA: He did have a CT scan of the head at one time, which was unremarkable. His TSH and vitamin B12 was unremarkable. IMPRESSION: This patient most likely has encephalopathy with a brain which is compromised because of his heavy alcohol use. I will try to reach the family, but I am not sure neurologically you can do much in this patient. Only recommendation I will have is that an MRI can be done to complete the workup if [facility] [address] [place] [address] CONSULTATION Name: TANYA WISEMAN Room #: 239-P ADM IN .R.#: [id number] Admission: 08/23/21 Attend Phys: Shaila Toro MD Discharge: Date of : 57 Report #: [id number] he ever becomes cooperative to do that and if the family want to proceed with that. I may get an EEG done on him also, but I will talk to the hospitalist and family tomorrow before doing any workup. By: 1859 0014 Vijay Gerardo MD /melissa
[~2021-08-23 12:35] MED LIST changes: +FERREX 150 PLU1 EAC1 PO; +FOLIC ACID1 MG PO; +INVANZ1 GM IV; +MEROPENEM500 MG IV; +MIRALAX17 GM PO; +PROTONIX 20 MG20 MG PO; +SODIUM BICARBO650 M3 PO; +VITAMIN B-12500 MCG PO; +VITAMIN D350 MC3 PO; +ZOFRAN ODT4 MG PO
[2021-08-23 12:45] VITALS: BP 142/61
[2021-08-23 13:23] LABS: BE(vivo) 1.5 mmol/L (-2 to +3); HCO3 27.3 mmol/L (22.0-26.0); PCO2 VENOUS 49.4 mmHg (41.0-51.0); PO2 VENOUS 54.3 mmHg (35.0-45.0)
[2021-08-23 13:24] LABS: ABSOLUTE NEUTROPHILS 6.8 thou/uL (1.4-8.2); BASOPHILS 0.5 % (0.0-2.0); EOSINOPHILS 1.9 % (0.0-3.0); HEMATOCRIT 23.5 % (42.0-52.0); HEMOGLOBIN 7.9 gm/dL (14.0-18.0); MCH 31.5 pg (26.0-34.0); MCHC 33.8 g/dL (28.0-37.0); MCV 93.2 fL (80.0-100.0); MONOCYTES 9.6 % (1.0-8.0); PLATELET COUNT 233 thou/uL (150-400); RBC 2.52 mil/uL (4.50-6.00); WBC 9.3 thou/uL (4.0-11.0)
[2021-08-23 13:34] LABS: CALCIUM 8.2 mg/dL (8.5-10.1); CREATININE 2.1 mg/dL (0.7-1.3)
[2021-08-23 13:44] LABS: ALBUMIN 2.6 g/dL (3.4-5.0); DIRECT BILIRUBIN 0.2 mg/dL (<0.1-0.2); TOTAL BILIRUBIN 0.8 mg/dL (0.2-1.0); TOTAL PROTEIN 6.5 g/dL (6.4-8.2)
[2021-08-23 13:50] LABS: URINE BILIRUBIN NEGATIVE (Negative); URINE BLOOD 3+ (Negative); URINE CLARITY SL CLOUDY; URINE COLOR YELLOW; URINE GLUCOSE-RANDOM* NEGATIVE (Negative); URINE KETONES NEGATIVE (Negative); URINE NITRITE-REFLEX NEGATIVE (Negative); URINE PROTEIN (DIPSTICK) 2+ (Negative); URINE UROBILINOGEN 0.2 E.U./dl (0.2-1.0)
[2021-08-23 13:56] LABS: URINE LEUKOCYTES-REFLEX 3+ (Negative)
[2021-08-23 14:01] LABS: BACTERIA-REFLEX 1-9 Few /HPF (None Seen); CASTS None Seen /LPF (None Seen); CRYSTALS None Seen /LPF (None Seen); SQUAMOUS 0-3 Few /LPF (0-3); URINE RBC >20 Many /HPF (NONE SEEN)
[2021-08-23 15:13] VITALS: BP 98/60
[2021-08-23 16:30] VITALS: BP 147/75
--- NOTE | 2021-08-23 17:47 | NUR ---
PT ADMIT FROM ED APPROX 1700. PT AFEBRILE, ADEQUATE UOP (THROUGH BILATERAL NEPHROSTOMY TUBES, THAT WERE PRESENT UPON ADMISSION), FAIR APPETITE (ASPIRATION PRECAUTIONS IN PLACE), NO BM. PT AND HAVE BEEN THOUROUGHL UPDATED AND EDUCATED ON PT CONDITION AND POC. PT SLOWLY PROGRESSING TOWARDS POC. ALL FALL RISK PRECAUTIONS IN PLACE.
[2021-08-23 19:31] VITALS: BP 132/66
--- NOTE | 2021-08-24 03:45 | NUR ---
ASSESSED AT START OF SHIFT. PT A&OX3 CONFUSED. IV INTACT AND ABX GIVEN. DENIES PAIN.N/V. PT HAS ROBERT NEPHROSTOMY BAG. LIGHT YELLOW OUTPUT NOTED. FALL PREC IN PLACE AND CALL LIGHT AT REACH. ON 3L OF O2. WILL CONT TO MONITOR.
[2021-08-24 03:57] LABS: ALBUMIN 2.4 g/dL (3.4-5.0); CALCIUM 8.1 mg/dL (8.5-10.1); CREATININE 2.1 mg/dL (0.7-1.3); MAGNESIUM 1.3 mg/dL (1.8-2.4); PHOSPHORUS 4.1 mg/dL (2.5-4.9); POTASSIUM 4.4 mmol/L (3.5-5.1); TOTAL BILIRUBIN 0.5 mg/dL (0.2-1.0); TOTAL PROTEIN 6.1 g/dL (6.4-8.2)
[2021-08-24 04:02] VITALS: BP 138/89
[2021-08-24 04:46] LABS: ABSOLUTE NEUTROPHILS 6.1 thou/uL (1.4-8.2); BASOPHILS 0.4 % (0.0-2.0); EOSINOPHILS 3.3 % (0.0-3.0); HEMATOCRIT 23.5 % (42.0-52.0); LYMPHOCYTES 12.7 % (24.0-44.0); MCH 32.2 pg (26.0-34.0); MCV 94.7 fL (80.0-100.0); MONOCYTES 9.7 % (1.0-8.0); PLATELET COUNT 240 thou/uL (150-400); POLYS 73.9 % (36.0-66.0); RBC 2.48 mil/uL (4.50-6.00); RDW 13.8 % (10.5-14.5); WBC 8.3 thou/uL (4.0-11.0)
[2021-08-24 08:00] VITALS: BP 147/61
[2021-08-24 11:40] VITALS: BP 111/56
[2021-08-24 16:10] VITALS: BP 138/65
[2021-08-24 20:15] VITALS: BP 142/70
[2021-08-25 03:20] VITALS: BP 136/69
[2021-08-25 05:29] LABS: ABSOLUTE NEUTROPHILS 7.9 thou/uL (1.4-8.2); BASOPHILS 0.4 % (0.0-2.0); EOSINOPHILS 3.1 % (0.0-3.0); HEMATOCRIT 23.2 % (42.0-52.0); HEMOGLOBIN 7.8 gm/dL (14.0-18.0); LYMPHOCYTES 8.4 % (24.0-44.0); MCHC 33.7 g/dL (28.0-37.0); MONOCYTES 7.9 % (1.0-8.0); PLATELET COUNT 291 thou/uL (150-400); POLYS 80.2 % (36.0-66.0); RBC 2.44 mil/uL (4.50-6.00); RDW 14.4 % (10.5-14.5); WBC 9.8 thou/uL (4.0-11.0)
[2021-08-25 05:32] LABS: ALBUMIN 2.4 g/dL (3.4-5.0); CALCIUM 8.3 mg/dL (8.5-10.1); CREATININE 1.9 mg/dL (0.7-1.3); POTASSIUM 4.7 mmol/L (3.5-5.1); TOTAL BILIRUBIN 0.4 mg/dL (0.2-1.0); TOTAL PROTEIN 6.3 g/dL (6.4-8.2)
--- NOTE | 2021-08-25 07:30 | EKG ---
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: [id number] : [id number] Requested By: Naina Owens Order Number: [id number] MD: Jayy Oro Measurements Intervals [place] Rate: 83 P: 33 TN: 178 QRS: -26 QRSD: 83 T: 28 QT: 367 QTc: 432 Interpretive Statements Sinus rhythm Multiple premature complexes, vent & supraven Borderline left axis deviation Low voltage, extremity leads Compared to ECG 07/28/2021 12:42:43 Low QRS voltage now present Sinus tachycardia no longer present Myocardial infarct finding no longer present Electronically Signed On 08-25-2021 7:30:02 CDT by Jayy Oro [email or web address] <ELECTRONICALLY SIGNED> By: Jayy Oro MD, FACC 08/25/21 0730 1347 1347 Jayy Oro MD, [facility] /EPI
--- NOTE | 2021-08-25 07:48 | NUR ---
ASSUME CARE 1900. PT/VITALS STABLE. DENIES ANY PAIN. A/O X 4 BUT PT APPEARS CONFUSED AND FORGETFUL SOMETIMES. NEEDS REDIRECTION AT TIMES. FOLLOWS COMMANDS APPROPRIATELY BUT IS FORGETFUL. PT IS VERY FIDGETY, RESTLESS, AND IMPULSIVE. PLACED CLOSE TO MURSES' STATION FOR FREQUENT OBSERVATION. ASSESSMENT CHARTED. PROGRESSING SLOWLY TOWARDS POC. PLAN IS TO CONTINUE TO MONITOR LOC, ID FOLLOWING WITH ABX THERAPY FOR UTI. REHAB CONSULTED. WILL CONITNUE TO MONITOR AND FOLLOW WITH POC
[2021-08-25 08:35] VITALS: BP 135/105
[2021-08-25 11:50] VITALS: BP 150/84
[2021-08-25 14:33] LABS: URINE BILIRUBIN NEGATIVE (Negative); URINE BLOOD TRACE (Negative); URINE CLARITY CLEAR; URINE COLOR YELLOW; URINE GLUCOSE-RANDOM* NEGATIVE (Negative); URINE KETONES NEGATIVE (Negative); URINE NITRITE-REFLEX NEGATIVE (Negative); URINE PROTEIN (DIPSTICK) 1+ (Negative); URINE UROBILINOGEN 0.2 E.U./dl (0.2-1.0)
[2021-08-25 14:35] LABS: URINE LEUKOCYTES-REFLEX 1+ (Negative)
[2021-08-25 14:45] LABS: SQUAMOUS 0-3 Few /LPF (0-3); URINE WBC-REFLEX >25 Many /HPF (0-5)
[2021-08-25 14:46] LABS: BACTERIA-REFLEX 1-9 Few /HPF (None Seen); CRYSTALS None Seen /LPF (None Seen); URINE RBC None Seen /HPF (NONE SEEN); YEAST-REFLEX Present (None Seen)
[2021-08-25 16:00] VITALS: BP 133/77
[2021-08-25 16:16] LABS: URINE BILIRUBIN NEGATIVE (Negative); URINE BLOOD 1+ (Negative); URINE CLARITY CLEAR; URINE COLOR YELLOW; URINE GLUCOSE-RANDOM* NEGATIVE (Negative); URINE KETONES NEGATIVE (Negative); URINE NITRITE-REFLEX NEGATIVE (Negative); URINE PROTEIN (DIPSTICK) 2+ (Negative); URINE UROBILINOGEN 0.2 E.U./dl (0.2-1.0)
[2021-08-25 16:17] LABS: URINE LEUKOCYTES-REFLEX 3+ (Negative)
[2021-08-25 16:21] LABS: BACTERIA-REFLEX 1-9 Few /HPF (None Seen); SQUAMOUS 0-3 Few /LPF (0-3); URINE RBC 1-2 Rare /HPF (NONE SEEN); URINE WBC-REFLEX >25 Many /HPF (0-5)
[2021-08-25 17:43] LABS: CRYSTALS None Seen /LPF (None Seen)
[2021-08-25 20:20] VITALS: BP 165/83
[2021-08-26] VITALS (60 sets, daily range): BP systolic 109–164; BP diastolic 57–94
--- NOTE | 2021-08-26 07:35 | NUR ---
RECEIVED THE PATIENT ALERT AND ORIENTED TO SELF,GETS IMPULSIVE AND CONFUSED.WITH BILATERAL NEPHROSTOMY TUBES INTACT.ON NASAL CANNULA AT 2LPM SATURATING WELL.NO COMPLAINS OF PAIN.NOT IN DISTRESS.LATER IN THE NIGHT PATIENT GETS MORE CONFUSED, IMPULSIVE AND RESTLESS,TRIES TO GET UP FROM THE BED FREQUENTLY, DUST MILL OPERATOR INFORMED AND ORDERS CARRIED OUT.EMILE ROUSE STILL PATIEN TDID NOT SETTLE DOWN AND STILL RESTLESS, GAVE OLANZAPINE ORDERED BUT STILL DIDNT HELP.PATIENT REMAINS AGITATED AND KEPT ON GETTING OUT OF THE BED.UPDATED DUST MILL OPERATOR OF THE PATIENT AGRESSIVE BEHAVIOUS, ORDERED TO TRANSFER TO ICU FOR CLOSE MONITORING TO BE GIVEN MEDICATION TO SETTLE DOWN THE PATIENT.REPORT GIVEN TO ICU STAFF MATHIEU.TRANSFERED PATIENT TO ICU AROUND 0615H, VITALLY STABLE. HAS BEEN UPDATED AND INFORMED THAT BRET JOINER TRANSFERED TO ICU.
--- NOTE | 2021-08-26 07:40 | NUR ---
Pt TRANSFERRED TO ICU. WILL PLACE ON HOLD AND AWAIT NEW ORDERS TO RESUME WHEN APPROPRIATE
--- NOTE | 2021-08-26 09:55 | NUR ---
Nutrition: pt admitted with falls, UTI. Seen due to high risk screen for poor intake, wt loss. Transferred to ICU from floor due to confusion, impulsive, now requiring precedex. Prior intakes were documented as good, >75% meals. Here on recent admit S/P bilateral nephrostomy tube placement, Hx bladder CA, ETOH. Required [facility] soft diet due to need for dental procedure/missing teeth. reported "so-so" appetite at home since discharged from rehab 2 weeks ago. UBW reported as 189#. Current 200# per bedscale, follow trends. Drinks protein drink daily at home and will drink Ensure BID, RD to order. Place as low risk with interventions in place. Follow care plan for ability to resume po with use of precedex at present.
--- NOTE | 2021-08-26 12:04 | NUR ---
Case opened to follow for dc planning. Pt transfered from CCU to ICU due to aggitation. He was readmitted with complicated UTI, weakness and enceph. Pt is well known to cm from recent inpt admissions. He dc'd to home from [facility] acute rehab with [facility] [place] [facility] on 08/08/21. CM spoke to his Kristen and she indicates that nursing and therapy had been seeing him. She is still on FMLA and is at home with him. His iv atbs and ticc line had been dc'd. He did miss a f/u appt with Dr Schmitt and notes a couple of falls at home. He has dme in place including home o2 per rita, KENYON and scooter. No steps in the home and a ramp to enter. She is not interested in a SNF stay at this time and is concerned that they might need a hospice referral. She notes that onc feels he is not a good candidate for chemo d/t his renal function and he is not a surgical candidate due to his COPD. She knows he would perfer to be at home if at all possible. CM role reveiwed and support provided. Will reassess for dc planning once he is out of ICU. Therapy evals were initiated yesterday but put on hold today.
--- NOTE | 2021-08-26 18:25 | NUR ---
PT NOT PROGRESSING TOWARDS D/C AT THIS TIME. PT CURRENTLY ON PRECEDEX DRIP, HAVE TITRATED DRIP UP AND DOWN THROUGHOUT THE DAY. PT STARTS TO BECOME VERY AGITATED IF DRIP IS LOWERED PAST 1. WHEN PT AWAKENS BRIEFLY PT STILL VERY CONUSED, SEEING OBJECTS THAT ARE NOT THERE, HE IS AWARE OF HIS MEDICAL CONDITION, AND AWARE TO SELF. PT WAS AT BEDSIDE MOST OF THE MORNING, PT DAUGHTER VERY UPSET THAT NO ONE CONTACTED HER REGARDING HER FATHERS TRANSFER FROM CCU TO ICU, WOULD LIKE TO SPEAK TO A DOCTOR CONCERNING HER FATHERS CONDITION. DR LR. PT REMAINS RESTRAINED DUE TO INCREASE RISK OF FALLS AND IMPULSIVE BEHAVIOR. WILL CONTINUE TO FOLLOW POC.
--- NOTE | 2021-08-26 18:28 | NUR ---
DAUGHTER WILDA CALLED TO GET AN UPDATE ON THE PATIENT. FAMILY WAS UPSET THEY COULD NOT UNDERSTAND THE CAUSE OF PATIENT ACUTE MENTAL STATUS CHANGE. THIS RN INFORMED FAMILY TO TALK TO THE HOSPITALIST TOMORROW WITH ALL THEIR INQUIRIES. DR. WORTHINGTON WAS KRYPTO TEXTED BY THIS RN AT 1829PM. CONTINUE TO MONITOR.
[2021-08-26 19:31] LABS: ABSOLUTE NEUTROPHILS 7.4 thou/uL (1.4-8.2); BASOPHILS 0.3 % (0.0-2.0); EOSINOPHILS 3.5 % (0.0-3.0); HEMATOCRIT 24.3 % (42.0-52.0); HEMOGLOBIN 8.2 gm/dL (14.0-18.0); LYMPHOCYTES 7.2 % (24.0-44.0); MCH 32.4 pg (26.0-34.0); MCHC 33.9 g/dL (28.0-37.0); MCV 95.4 fL (80.0-100.0); MONOCYTES 9.5 % (1.0-8.0); PLATELET COUNT 293 thou/uL (150-400); POLYS 79.5 % (36.0-66.0); RBC 2.55 mil/uL (4.50-6.00); RDW 15.1 % (10.5-14.5); WBC 9.3 thou/uL (4.0-11.0)
[2021-08-26 19:44] LABS: MAGNESIUM 1.9 mg/dL (1.8-2.4); PHOSPHORUS 3.9 mg/dL (2.6-4.7)
[2021-08-27] VITALS (26 sets, daily range): BP systolic 116–167; BP diastolic 63–136
[2021-08-27 05:24] LABS: HEMATOCRIT 22.9 % (42.0-52.0); HEMOGLOBIN 7.8 gm/dL (14.0-18.0); MCH 32.4 pg (26.0-34.0); MCHC 34.1 g/dL (28.0-37.0); MCV 95.1 fL (80.0-100.0); RBC 2.41 mil/uL (4.50-6.00); RDW 15.3 % (10.5-14.5); WBC 8.5 thou/uL (4.0-11.0)
[2021-08-27 05:30] LABS: CALCIUM 8.3 mg/dL (8.5-10.1); CREATININE 1.7 mg/dL (0.7-1.3); POTASSIUM 4.6 mmol/L (3.5-5.1)
--- NOTE | 2021-08-27 08:29 | HC ---
[facility] [place] [address] CONSULTATION Name: TANYA WISEMAN Room #: 239-P ADM IN M.R.#: [id number] Admission: 08/23/21 Attend Phys: Shaila Toro MD Discharge: Date of : 57 Report #: [id number] THIS REPORT FOR: cc: FAM - Family physician unknown FAM - Family physician unknown Steve Marroquin MD ~ cc: Jose Luis Schmitt MD, Quiana Mendoza PHYSICIAN REQUEST: Dr. Shaila Toro. REASON FOR CONSULTATION: Muscle invasive bladder cancer. 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 The patient has a history earlier of what sounds like bilateral ureteral obstruction with the placement of nephrostomy tubes and had a TURBT with resection of bladder tumors and supposedly the finding of high-grade muscle invasion. Both the op report and the path report are not currently available to this physician. The patient was seen by them and options on treatment were discussed. Using the main treatment for a localized bladder cancer would be resection of physically possible. Typically, we would prefer to have a PET scan done beforehand. This might be arranged as an outpatient when and if the patient improves, so radiation therapy will be the first choice if not, sometimes chemotherapy and radiation therapy are looked up for curative intent, though it is not sure at this time whether the patient will tolerate chemo, especially agent such as cisplatin. Consideration could be given to 5-FU and Mitomycin C or to weekly Taxol. REVIEW OF SYSTEMS: The patient has currently received some medications earlier and is not wakeful. He was somewhat agitated the last night and reports mention that he had no acute distress, had fallen several times and may have tripped over things reportedly no fevers or chills, night sweats, or nausea, vomiting or diarrhea per the patient, had not had any lightheadedness or palpitations or syncope or focal weakness. It sounds like he had sort of slid or maybe tripped on things and just was weak. He had a cough, nonproductive, which is baseline. No sore throat reportedly. As mentioned above, past history is notable for the hypertension, emphysema, alcohol misuse and COPD, also obstructive uropathy and urinary tract infections in the past. Here in the hospital, he has had a CT scan of the head that was unremarkable. Chest x-ray is unremarkable. He had recently had CAT scans of the abdomen and pelvis without any obvious metastatic disease. MEDICATIONS: At this time in the hospital currently include levofloxacin 500 mg daily p.o., vitamins daily, thiamine 100 mg daily p.o., nicotine [address] [address] CONSULTATION Name: TANYA WISEMAN Room #: 239-P ADM IN M.R.#: [id number] Admission: 08/23/21 Attend Phys: Shaila Toro MD Discharge: Date of : 57 Report #: [id number] gram patch daily, dexmedetomidine titrate, famotidine 10 b.i.d., Xanax 0.25 q. 8 hours p.r.n., albuterol respiratory therapy p.r.n., MiraLax 17 grams daily, sodium bicarbonate 1300 mg b.i.d. orally, losartan 25 daily, metoprolol 50 b.i.d., fluticasone respiratory therapy daily, ipratropium respiratory therapy q.i.d., tramadol 25 mg q. 6 hours p.r.n., olanzapine 5 mg 1 time and Haldol had been 5 mg one time though I think those might have been PRNs. PHYSICAL EXAMINATION: GENERAL: The patient appears his stated age. VITAL SIGNS: His height is 5 feet 9 inches, 175.3 cm, weight is 200 pounds on one measure, 189 on another, 90.7 kilograms. Recent blood pressure is 123/64, O2 sat 100%, respirations 18, pulse 81, afebrile at 98.6. NEUROLOGIC: The patient is currently sedated from his past medications and not arousable to voice or to light touch. HEENT: His face appears symmetrical. No obvious bruising. LUNGS: Have some slight coarseness centrally, but no wheezes or significant rhonchi. LYMPHATIC: No enlarged lymph nodes in the supraclavicular, axillary region. ABDOMEN: Somewhat obese. No masses. The patient does not wince on exam. Groin is without obvious masses. EXTREMITIES: Do have some trace edema. LABORATORY DATA: Lab work notable for a creatinine of 1.9, AST is 20, total bilirubin 0.4, calcium 8.3, alkaline phosphatase 88, albumin 2.4. Recent white count 9.8, hemoglobin 7.8, platelets 291. Differential nonacute. Earlier this year, TSH 1.47. Folate 14.6, B12 370. ASSESSMENT AND PLAN: 1. Muscle invasive bladder cancer reported. We will ask the nurse and staff to get copies of op report and path report from Dr. Rain's office to place in chart and fax to my office. Best option would be surgical resection. If patient is not a candidate and the disease is thought to be localized after scan such as a PET scan then could consider radiation therapy and if the patient is healthy though could consider weekly Taxol or 5-FU mitomycin during that time. We will await the patient's improvement to see how clinically stable and strong he is. At this time, unable to discuss with the patient. 2. Falling at home and questionable encephalopathy. Workup per others. CT head unremarkable. Continues on folate, thiamine and other medications. 3. History of hypertension, meds per others. 4. Emphysema, aerosol treatments per others. 5. History of alcohol misuse. Defer to others. We will follow with you. <ELECTRONICALLY SIGNED> By: Steve Marroquin MD 08/27/21 0829 9 0910 Steve Marroquin MD /nt
--- NOTE | 2021-08-27 16:50 | NUR ---
PT HAS SHOWN S/S OF IMPROVEMENT TO MENTAL STATUS THROUGHOUT THE DAY TODAY. PT APPEARS TO BE ALERT AND IS ORIENTED TO SELF, HOSPITAL, AND MEDICAL CONDITION WELL TO FAMILY. NO HALLUCINATIONS AND MINIMAL IMPLUSIVE BEHAVIOR HAS BEEN SEEN TODAY. PRECEDEX DRIP HAS BEEN SLOWLY TITRATED DOWNWARDS THROUGHOUT THE DAY TODAY, WITH CONTINUED MENTAL STATUS REASSESSMENTS PERFORMED. PRECEDEX DRIP IS PRESENTLY OFF AT 1645 WELL RESTRAINTS BEING MOVED. PT KNOWS AND HAS PRESSED THE CALL LIGHT TODAY WHEN HE NEEDS SOMETHING AND NOT TO GET UP WITHOUT ASSISTANCE OR PRESSING CALL LIGHT FIRST. BED IS IN LOWEST POSITION AND BED ALARM IS ON. 4 SIDERAILS ARE UP ON THE BED AT THIS TIME DUE TO POSSIBLE IMPLUSIVE BEHAVIOR. PT RESTING COMFORTABLY AT THIS TIME IN BED WATCHING TV. WILL PASS ALONG FALL RISK PRECAUTIONS TO NEXT SHIFT AND WILL CONTINUE TO FOLLOW POC.
[2021-08-28] VITALS (24 sets, daily range): BP systolic 99–183; BP diastolic 41–91
--- NOTE | 2021-08-28 07:25 | NUR ---
PT OFF PRESADEX AND NO RESTRAINTS AT BEGINNING OF SHIFT. STARTING AROUND 0500 PT BECAME MORE AGITATED AND TRYING TO GET OUT OF BED. AAOX4. pRESADEX RESTARTED AT 0600. CALLED AND LABS ORDERED.
[2021-08-28 07:40] LABS: HEMATOCRIT 25.4 % (42.0-52.0); HEMOGLOBIN 8.6 gm/dL (14.0-18.0); MCH 32.1 pg (26.0-34.0); MCHC 33.9 g/dL (28.0-37.0); MCV 94.5 fL (80.0-100.0); RBC 2.68 mil/uL (4.50-6.00); RDW 15.4 % (10.5-14.5); WBC 11.3 thou/uL (4.0-11.0)
[2021-08-28 08:00] LABS: CALCIUM 8.5 mg/dL (8.5-10.1); CREATININE 1.6 mg/dL (0.7-1.3); POTASSIUM 4.1 mmol/L (3.5-5.1)
--- NOTE | 2021-08-28 10:44 | NUR ---
THIS MORNING I WAS GETTING REPORT FROM NIGHT RN, PATIENT WAS VERY IMPULSIVE SITTING UP IN BED TRYING TO GET OUT OF BED STATING HE HAD TO GET TO HIS APPOINTMENT. REDIRECTED TO GET BACK IN BED AND REMINDED THAT HE WAS IN THE HOSPITAL. ALREADY ON PRECEDEX GTT PER NIGHT RN. SITTER REQUESTED TO SIT IN ROOM FOR PATIENT'S SAFETY. EVENTUALLY AT AROUND 0830 PATIENT SETTLED DOWN AND FELL ASLEEP. PRECEDEX TITRATED DOWN PATIENT TOLERATES. SPOUSE AT THE BEDSIDE AND UPDATED.
--- NOTE | 2021-08-28 15:00 | NUR ---
WEANED OFF PRECEDEX, PATIENT CONTINUES TO HAVE PERIODS OF FORGETFULNESS AND RESTLESS AT TIMES. PRN XANAX AND SCHEDULED HALDOL IN USE.
[2021-08-29] VITALS (19 sets, daily range): BP systolic 108–179; BP diastolic 45–107
--- NOTE | 2021-08-29 01:59 | NUR ---
ASSUMED CARE OF PATIENT AT 1900. PATIENT REMAINS RESTLESS, IMPULSIVE AND VERY FORGETFUL. PRN HALDOL GIVEN, WELL SCHEDULED. SPOKE WITH , UPDATED ON PATIENT CONDITION. PATIENT NPO AFTER MIDNIGHT, POSSIBLE NEPHROSTOMY TUBE REPLACEMENT.
[2021-08-29 08:57] LABS: PROTIME 10.9 Seconds (10.5-12.1)
--- NOTE | 2021-08-29 11:25 | NUR ---
spoke with VERO Rice this am. consent for replacment of nephrectomy drains discussed with and completed. Dr. Nelson present, updated on pt status. pt cardiac care unit/telemetry status. Rn placed call to Dr. Gerardo, regarding physicians note expressing need for mri of head when pt would tolerate. received order for mri of head today. present at bedside providing support. updated and all questions answered to satisfaction.
--- NOTE | 2021-08-29 15:00 | NUR ---
1330 to radiology per cart. mri well tolerated. 1500 returned to icu.
--- NOTE | 2021-08-29 15:23 | NUR ---
ЕЛЕНА WITH ORDERS TO TRANSFER OUT OF ICU. SP WITH PHYS AND RN, THERAPY ORDERS ORDERED FOR NEED OF POSSIBLE POST ACUTE AT DC.
--- NOTE | 2021-08-29 18:42 | NUR ---
pt's hands/arms grossly shakey when he tried to obtain food on fork/spoon or bring cup of fluid to his face to feed himself. shoving large bites of food in his mouth then poorly chewing his food nearly choking. RN fed pt. report given to critical care fuel cell test engineer. transferring per icu bed to #204.
[2021-08-30] VITALS (7 sets, daily range): BP systolic 133–186; BP diastolic 65–100
--- NOTE | 2021-08-30 05:07 | NUR ---
PT TRANSFERRED FROM ICU AT CHANGE OF SHIFT, PT IS SLEEPY DURING INITIAL ASSESSMENT, SR ON TELE, DENIES PAIN OR DISCOMFORT, PT ASSESSMENTS CHARTED, SCHEDULED HALDOL HELD PER NURSING JUDGEMENT, PT MORE AWAKE THIS MORNING, ALERT AND ORIENTEDX3, STATES HE IS IN GOOD SHAPE TODAY, PLEASANT, REMAINS ON 3L NC, NO ACUTE DISTRESS NOTED VSS, CIWA OF 5, NO NEEDS AT THIS TIME WILL CONTINUE TO MONITOR PER POC
[2021-08-30 11:03] LABS: BASOPHILS 0.9 % (0.0-2.0); EOSINOPHILS 1.1 % (0.0-3.0); HEMATOCRIT 27.5 % (42.0-52.0); HEMOGLOBIN 9.1 gm/dL (14.0-18.0); LYMPHOCYTES 11.5 % (24.0-44.0); MCH 31.7 pg (26.0-34.0); MCHC 33.2 g/dL (28.0-37.0); MCV 95.6 fL (80.0-100.0); MONOCYTES 5.6 % (1.0-8.0); PLATELET COUNT 370 thou/uL (150-400); POLYS 80.9 % (36.0-66.0); RBC 2.88 mil/uL (4.50-6.00); WBC 9.8 thou/uL (4.0-11.0)
[2021-08-30 11:06] LABS: ALBUMIN 2.8 g/dL (3.4-5.0); CALCIUM 8.9 mg/dL (8.5-10.1); CREATININE 1.5 mg/dL (0.7-1.3); POTASSIUM 4.5 mmol/L (3.5-5.1); TOTAL BILIRUBIN 0.5 mg/dL (0.2-1.0)
--- NOTE | 2021-08-30 19:31 | NUR ---
PT IS AXOX4, SOME AGITATION, COOPERATIVE. VS SBP ELEVATED 180s, AFEBRILE, ST ON THE MONITOR. DENIES PAIN. PT SCORED CIWA 5 AND 6 THROUGHOUT THE DAY DUE TO AGITATION AND TREMORS. RX HALIDOL GIVEN. PT FAMILY AT BEDSIDE THROUGHOUT THE DAY. POC IS TO CONTINUE IV ABX/ANTIFUNGAL, CIWA PRECAUTIONS. PT/OT CONSULTED. PRN RT TX AVAILABLE. UROLOGY AND IR CONSULTED FOR PLACEMENT OF NEW NEPHROSTOMY TUBES ON WEDNESDAY. FALL PRECAUTIONS IN PLACE. NO CONCERNS AT THIS TIME.
[2021-08-31 04:46] VITALS: BP 166/89
--- NOTE | 2021-08-31 06:33 | NUR ---
assumed pt care at 1900, pt is alert and orientedx4 with some forgetfulness, sr/st on tele, denies pain or sob, remains on 2l nc, meds given as per jan, ciwa of 5, haldol given as scheduled, nephrostomy tubes intact, draining well, no distress noted, will pass on report
[2021-08-31 07:25] VITALS: BP 141/71
[2021-08-31 11:45] VITALS: BP 152/76
[2021-08-31 15:32] VITALS: BP 145/61
[2021-08-31 19:04] VITALS: BP 138/85
--- NOTE | 2021-08-31 19:49 | NUR ---
PT IS AXOX4, SOMETIMES FORGETFUL. VSS, AFEBRILE, SR ON THE MONITOR. PT HAS BEEN SITTING UP TO SIDE OF BED FOR MEALS TO PROMOTE ACTIVITY. DR WORTHINGTON CONSULTED. POC IS TO CONTINUE TO PROMOTE ACTIVITY TOLERATED. PT/OT CONSULTED. CONSENT IN CHART FOR NEPHROSTOMY TUBE CHANGE ON 09/01. FALL PRECAUTIONS IN PLACE. NO CONCERNS AT THIS TIME.
[2021-09-01 03:40] VITALS: BP 137/70
[2021-09-01 04:28] LABS: HEMATOCRIT 24.3 % (42.0-52.0); HEMOGLOBIN 8.2 gm/dL (14.0-18.0); MCHC 33.6 g/dL (28.0-37.0); MCV 95.2 fL (80.0-100.0); RBC 2.55 mil/uL (4.50-6.00); RDW 16.4 % (10.5-14.5); WBC 9.5 thou/uL (4.0-11.0)
[2021-09-01 04:34] LABS: CALCIUM 8.5 mg/dL (8.5-10.1); CREATININE 1.3 mg/dL (0.7-1.3); MAGNESIUM 1.5 mg/dL (1.8-2.4); POTASSIUM 4.1 mmol/L (3.5-5.1)
--- NOTE | 2021-09-01 05:09 | NUR ---
PT LYING IN BED. UROSTOMY TUBES X2. VOIDING PER URINAL. DENIES PAIN. RESTING COMFORTABLY. NO NEEDS VOICED. CALL LIGHT WITHIN REACH. FREQUENT OBSERVATION.
[2021-09-01 08:57] VITALS: BP 160/71
--- NOTE | 2021-09-01 10:02 | NUR ---
Assumed care of pt this AM. Pt is A&O x3, on 2L NC. Denies any chest pain. NPO since midnight for plan to replace nephrostomy tubes today. ST on the monitor. CIWA protocol in place. ST on the monitor. High fall precautions in place.
--- NOTE | 2021-09-01 12:15 | NUR ---
met with patient and at bedside. Recommendation of post acute care. 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 Sp with admissions at [facility] and faxed referral packet. sp with urology. Important patient f/u with consultants to determine if can have sx reg bladder cancer. Patients PCP Dr Canseco in [facility]. cont to follow
[2021-09-01 12:27] VITALS: BP 152/89
--- NOTE | 2021-09-01 15:52 | NUR ---
PER [facility] NOTES: PT MAY BE MORE APPROPRIATE FOR [facility] SETTING. THANK YOU FOR THIS REFERRAL.
[2021-09-01 16:28] VITALS: BP 145/83
[2021-09-01 19:37] VITALS: BP 173/89
[2021-09-01 23:49] VITALS: BP 146/91
--- NOTE | 2021-09-02 04:10 | NUR ---
RECEIVED PATIENT AT 1900H.ON NASAL CANNULA AT 2LPM, SATURATING WELL.WITH BILATERAL NEPHROSTOMY TUBES INTACT.ON CIWA PROTOCOL.FALL PREVENTION MEASURES MAINTAINED.ALL NEEDS ATTENDED.TO CONTINOUSLY MONITOR.
[2021-09-02 04:34] VITALS: BP 102/76
[2021-09-02 08:42] VITALS: BP 131/86
--- NOTE | 2021-09-02 09:58 | NUR ---
Nutrition followup: pt now transferred to CCU from ICU. Mental status significantly improved. PO intake is good, 75-100% of meals on chopped diet followed by ST. Main reason for altered consistency due to dental issues/missing dentition. Pt requesting bread which is not allowed. Relayed to ST who will trial at lunch with pt. Ensure provided BID and pt is drinking the supplements. Current weight of 165# error. UBW 189# reported with little change recently. Post nephrostomy tube exchange yesterday. BM 09/01. Low nutrition risk.
[2021-09-02 12:19] VITALS: BP 143/100
[2021-09-02 16:13] VITALS: BP 151/82
--- NOTE | 2021-09-02 17:31 | NUR ---
spoke with at bedside. updated [facility] with therapy updates. interested in obtaining medicare part B. With open enrollment at this time she is pursuing.
--- NOTE | 2021-09-02 18:05 | NUR ---
OVERALL PT HAD A GOOD SHIFT, WALKED WITH PHYSICAL THERAPY THROUGH THE HALLS. 1 BM THIS MORNING. REMAINED IN SINUS RHYTHM. DENIED PAIN THROUGHOUT SHIFT.
[2021-09-02 19:29] VITALS: BP 140/85
[2021-09-03 04:07] VITALS: BP 123/77
--- NOTE | 2021-09-03 07:56 | NUR ---
ALERT AND ORIENTEDX4, DENIES PAIN OR SOB, REMAINS ON 2L NC, O2SATS STABLE, SR/ST ON TELE, PROGRESSING WELL TOWARDS DISCHARGE
[2021-09-03 08:11] VITALS: BP 133/69
[2021-09-03 11:04] VITALS: BP 137/68
[2021-09-03 15:37] VITALS: BP 125/59
--- NOTE | 2021-09-03 17:21 | NUR ---
PT HAD 1 BOWEL MOVEMENT THIS AM, PT DENIED COMPAINTS OF PAIN, N/V, OR SHORT OF AIR THROUGHOUT THE SHIFT. PT UP AND WALKED WITH PHYSICAL THERAPY. PT ALSO HAD SPOUSE AT BEDSIDE MOST OF THE AFTERNOON.
[2021-09-03 19:47] VITALS: BP 134/64
--- NOTE | 2021-09-04 03:42 | NUR ---
assumed pt care at 1900, alert and oriented, denies pain or sob, assessments as charted, vital signs stable, meds given as per jan, awaiting for snf placement, will continue to monitor pt per poc
[2021-09-04 04:41] VITALS: BP 150/74
[2021-09-04 07:49] VITALS: BP 142/64
[2021-09-04 11:31] VITALS: BP 135/72
[2021-09-04 11:40] VITALS: BP 135/72
--- NOTE | 2021-09-04 12:18 | NUR ---
spoke with Larissa at [facility]. Cont to wait for auth for patient. Spoke with patient, and phys. Patient progressing while awaiting auth. Plan home with care. All in agreement with plan. Updated [facility].
[2021-09-04] MEDS ORDERED: FELODIPINE 5 MG5 M1 PO (15:34)
[2021-09-04] MEDS ORDERED: COZAAR 25 MG TA25 M1 PO (15:34)
[2021-09-04] MEDS ORDERED: ALPRAZOLAM 0.0.25 M1 PO (15:34)
[2021-09-04] MEDS ORDERED: NICOTINE1 EACH TRANSDERM (15:34)
[2021-09-04] MEDS ORDERED: LINEZOLID600 MG PO (15:34)
[2021-09-04] MEDS ORDERED: FLUCONAZOLE 10100 MG PO (15:34)
[2021-09-04] MEDS ORDERED: PRENATAL PO (15:34)
--- NOTE | 2021-09-04 16:16 | NUR ---
DISCHARGED PT. EXPLAINED DISCHARGE PAPER WORK TO PT AND SPOUSE, HIGHLIGHTED APPOINTMENTS, NEW MEDS, AND DISCONTINUED MEDS. ANSWERED ALL QUESTIONS. MOVED PT FROM ROOM TO CAR VIA WHEEL CHAIR, ASSISSTED PT INTO CAR WITHOUT INCIDENT.
--- NOTE | 2021-09-05 13:40 | HC ---
[facility] [place] [address] CONSULTATION Name: TANYA WISEMAN Room #: 204-P [facility] IN M.R.#: [id number] Admission: 08/23/21 Attend Phys: Shaila Toro MD Discharge: 09/04/21 Date of : 57 Report #: [id number] THIS REPORT FOR: cc: NELLY - Family physician unknown FAM - Family physician unknown Butch Echavarria MD ~ DATE OF SERVICE: 08/25/2021 HISTORY OF PRESENT ILLNESS: The patient is a 66-year-old male, previously known to me, who was recently on the inpatient rehab [facility] from 08/05/2021, discharged on 08/08/2021 with toxic metabolic encephalopathy, generalized debilitation, urinary sepsis, multiple papillary tumors, status post bilateral nephrostomy tubes, acute renal insufficiency. He did quite well during his acute inpatient rehabilitation stay and was able to be discharged home with standby assistance, sit to stand, and was ambulating 50 feet with a front-wheeled walker. He was discharged home with his who is currently on FMLA. He did undergo cystoscopy with biopsy, which included bladder tumor resection. He apparently has further urologic staging to be undertaken and there is a question as to how good of a surgical candidate he would be. Also, there is a question as to whether he would tolerate any chemotherapy. Since going back home, he has had problems with worsening weakness with 3 falls. It sounds like sliding episodes out of the chair secondary to weakness. His had some questions regarding staging scans and Urology was consulted. We are seeing him in rehabilitation medicine consultation. PAST MEDICAL HISTORY: Includes hypertension, emphysema, past history of heavy alcohol use, COPD, nephrostomy tubes, bladder cancer. HABITS: Current every day smoker, cigarettes. He does have a history of alcohol use, although there is very limited use prior to admission, per report. MEDICATIONS: Please see the full medication listing. REVIEW OF SYSTEMS: Denies any current chest pain, shortness of breath, or abdominal discomfort. SOCIAL HISTORY: Lives at home with his , 1 step. 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 He has a walker, scooter, and a golf cart. He had denied home O2 during his prior rehab stay. PHYSICAL EXAMINATION: GENERAL: The patient is a 66-year-old male, in no obvious distress. VITAL SIGNS: Last recorded temperature 98.7, pulse 96, respirations 20, blood pressure 135/105. NEUROLOGIC: He is alert. He tends to defer some answers to his . This is a definite delay in his responses. He was confused earlier in talking with the [address] [id number] CONSULTATION Name: TANYA WISEMAN Room #: 204-P [facility] IN M.R.#: [id number] Admission: 08/23/21 Attend Phys: Shaila Toro MD Discharge: 09/04/21 Date of : 57 Report #: [id number] . HEENT: Appeared to be benign. He is currently on nasal prong O2. He is on 4 liters. EXTREMITIES: He has functional range of motion of both upper extremities, strength is a grade 4- to 3+/5. DTRs are trace to 1. His lower extremities strength is grade 3+ to 4-. Tone appeared to be intact. ASSESSMENT: A 66-year-old male with the following problem list: 1. Toxic metabolic encephalopathy. 2. Generalized weakness with frequent falls. 3. Complicated urinary tract infection with bilateral hydronephrosis with nephrostomy tubes in place. 4. Status post cystoscopy with bladder tumor resection. 5. Bladder cancer, stage II with Urology consulted for further workup. 6. Chronic kidney disease stage III. 7. Chronic hypoxic respiratory failure. 8. Tobacco dependence. 9. Past history of alcohol heavy usage, but denies prior to this admission. 10. Tremor/tremulousness. He did have some baseline tremulousness, did not appear to be pill rolling and was somewhat intermittent. is concerned. PLAN: Discussion with Urology physician's medical library assistant and they will be further assessing. He may need further staging and workup. PT and OT to assess. is currently on FMLA, but obviously is frustrated. Hopefully, we can formulate a reasonable plan going forward as far as his management. At this point, we will be glad to follow along regarding his rehab therapy needs. Note that psychiatry has also been consulted regarding his encephalopathy. <ELECTRONICALLY SIGNED> By: Butch Echavarria MD 09/05/21 1340 [id number] Butch Echavarria MD /nt
== END 2021-09-04 16:44 | disposition home health service (06) | DRG 871 ==
LOC: ER 12:35 → 2N 14:39 → ICU 14:39 → EROBS 14:39 → 2N 15:40 → ICU 08-26 06:30 → 2N 08-29 19:14
PROVIDERS: Emergency Medicine; Internal Medicine; Nurse Practitioner Family; Physician Assistant; Specialist; ADMIT Internal Medicine; ATTEND Internal Medicine
PROC: 0T25X0Z Change Drainage Device in Kidney, External Approach (ICD-10-PCS; principal; 2021-09-01)
DX: A41.51 Sepsis due to Escherichia coli [E. coli] (principal); G92.8 Other toxic encephalopathy; E43 Unspecified severe protein-calorie malnutrition; N17.0 Acute kidney failure with tubular necrosis; J96.11 Chronic respiratory failure with hypoxia; N13.6 Pyonephrosis; J43.9 Emphysema, unspecified; R41.0 Disorientation, unspecified; F17.210 Nicotine dependence, cigarettes, uncomplicated; N18.30 Chronic kidney disease, stage 3 unspecified; Z20.822 Contact with and (suspected) exposure to COVID-19; I12.9 Hypertensive chronic kidney disease with stage 1 through stage 4 chronic kidney disease, or unspecified chronic kidney disease; E83.42 Hypomagnesemia; D63.8 Anemia in other chronic diseases classified elsewhere; R53.81 Other malaise; Z93.6 Other artificial openings of urinary tract status; Z88.8 Allergy status to other drugs, medicaments and biological substances; Z72.89 Other problems related to lifestyle; Z99.81 Dependence on supplemental oxygen; Z23 Encounter for immunization
CPT/HCPCS: 10078; 10081